=== PATIENT | female | born 1975 | race Caucasian/White ===

== ENCOUNTER 2017-07-05 17:47 | Inpatient (IN) | payer OTHER ==
[~2017-07-05] VITALS: Ht 157.5 cm; Wt 85.8 kg
[2017-07-05] MEDS ORDERED: VIVANCE PO (17:52)
[2017-07-05] MEDS ORDERED: KLONOPIN1 M1 PO (17:52)
--- NOTE | 2017-07-05 18:20 | ED GI/GU/ABDOMINAL COMPLAINT ---
History of Present Illness General Chief Complaint: Abdominal Pain/Flank Pain Stated Complaint: UPPER ABD PAIN Source: patient, family Exam Limitations: no limitations Vital Signs & Intake/Output Vital Signs & Intake/Output Vital Signs Date Time Temp Pulse Resp B/P B/P Pulse O2 O2 Flow FiO2 Mean Ox Delivery Rate 07/06 2031 968.7 93 18 119/57 98 Room Air 07/05 1858 99.0 96 18 151/76 99 Room Air 07/05 1753 98.2 98 20 134/89 97 Allergies Coded Allergies: Penicillins (HIVES 07/05/17) coconut oil (SOB 07/05/17) Triage Note: PER PT UPPER ABD PAIN SINCE FRIDAY, PER PT HAS A CYST ON PANCREAS AND WAS SENT TO [facility] BUT WAS SITTING X 3 HRS AND WAS NOT SEEN LMP 2 WEEKS AGO Triage Nurses Notes Reviewed? yes ? N Is pt currently ? No HPI: 42 yo F presenting with AP, N/V. Abdominal pain for the last 2-3 days, epigastric location, sharp/gnawing quality, radiating "straight through to the back", intermittent waxing and waning intensity, sharp increases, severe when present, unclear precipitating palliating factors. Associated nausea, anorexia, nonbloody nonbilious emesis x1 earlier today. Denies associated fevers, chills, chest pain, shortness breath, palpitations, fast patient, diarrhea, urinary symptoms, headache, neck pain, or focal neurologic symptoms. Evaluated at [place], found to have pancreatitis on labwork, no ED room available, left ED AMA to come to [facility]. patient endorses intermittent alcohol use, 1-2 times a month, most recently 2 glasses of wine yesterday evening. Patient has known pancreatic cystic mass discovered incidentally [address] abdomen and pelvis done for trauma, no prior history of pancreatitis or abdominal surgeries. (Michael LEROY,Clark) Reconcile Medications Clonazepam (Klonopin) 1 MG TABLET 1 TAB PO AT BEDTIME PRN INSOMNIA (Reported) [VIVANCE] 60 MG PO DAILY UNK (Reported) (Vijay LEROY,Mario Coughlin) Past History Travel History Traveled to [place] past 21 day No Medical History Any Pertinent Medical History? see below for history Neurological: NONE EENT: NONE Cardiovascular: NONE Respiratory: NONE Gastrointestinal: NONE Hepatic: NONE Renal: NONE Musculoskeletal: NONE Psychiatric: anxiety Endocrine: NONE Surgical History Surgical History: none Psychosocial History What is your primary language French Tobacco Use: Never used Family History Hx Contributory? No (Clark Rodriguez MD) Review of Systems Review of Systems Constitutional: Reports: no symptoms. EENTM: Reports: no symptoms. Respiratory: Reports: no symptoms. Cardiovascular: Reports: no symptoms. GI: Reports: see HPI. Genitourinary: Reports: no symptoms. Musculoskeletal: Reports: no symptoms. Skin: Reports: no symptoms. Neurological/Psychological: Reports: no symptoms. Hematologic/Endocrine: Reports: no symptoms. Immunologic/Allergic: Reports: no symptoms. All Other Systems: Reviewed and Negative (Clark Rodriguez MD) Physical Exam Physical Exam General Appearance: well developed/nourished, no apparent distress, alert, awake Head: atraumatic Eyes: Bilateral: PERRL, EOMI. Ears, Nose, Throat, Mouth: moist mucous membrane Neck: normal inspection, full range of motion Respiratory: normal breath sounds, no respiratory distress, lungs clear Cardiovascular: regular rate/rhythm, normal peripheral pulses Gastrointestinal: soft, tenderness Comments: Abdomen: Moderate epigasrtic TTP without rebound or guarding Core Measures ACS in differential dx? No Sepsis Present: No Sepsis Focused Exam Completed? No (Clark Rodriguez MD) Progress Differential Diagnosis: AAA, AMI, appendicitis, biliary colic, bowel obstruction , colon cancer, cholecystitis, diverticulitis, ectopic , endometritis, esophageal varices, gastritis, hepatitis, hernia, hemorrhoids, ischemic bowel, inflamm bowel dis, intrauterine , kidney stone, Catarina-Marika tear, ovarian cyst, ovarian torsion, pancreatitis, PID/cervicitis, peptic ulcer, PUD/ GERD, perforated viscous, SBO, threatened AB, UTI/pyelo Plan of Care: Orders Procedure Date/time Status Nothing by Mouth 07/06 B Active US-LIMITED ABDOMEN 07/06 06 Active LIPID PANEL 07/06 06 Active CBC WITHOUT DIFFERENTIAL 07/06 06 Active BASIC ELECTROLYTES PLUS BUN&CR 07/06 06 Active Pathway - chart 07/05 2242 Active House Staff 07/05 2242 Active Patient Data 07/05 2242 Active Code Status 07/05 2242 Active Saline Lock 07/06 2231 Active Misc Message 07/06 2231 Active ED Holding Orders 07/06 2231 Active Vital Signs 07/06 2231 Active Code Status 07/06 2231 Complete Patient Data 07/05 2152 Active Admit to inpatient 07/05 2122 Active Add-on Test (ER Only) 07/05 1904 Active LDH (LACT ACID DEHYDROGENASE) 07/05 182 Complete Intake & Output 07/06 1815 Active URINE 07/05 1809 Complete URINALYSIS 07/05 1809 Complete LIPASE 07/05 1809 Complete LACTIC ACID 07/05 1809 Complete COMPREHENSIVE METABOLIC PANEL 07/05 1809 Complete CBC WITHOUT DIFFERENTIAL 07/05 1809 Complete VTE Mechanical Prophylaxis 07/05 UNK Active Current Medications Sig/Marco Start time Last Medication Dose Stop Time Status Admin Enoxaparin Sodium 40 MG DAILY 07/06 1000 AC (Lovenox) Sodium Chloride 1,000 ML Q4 07/06 0200 UNVr (Normal Saline 0.9%) Clonazepam 1 MG AT BEDTIME PRN 07/05 2300 AC (Klonopin 1MG Tab) 07/12 225 Non-Formulary 0 SEE ADMIN CRITERIA 07/05 230 UNVr Medication (NON FORMULARY) Morphine Sulfate 2 MG Q6P PRN 07/05 2245 AC (MORPHINE SULFATE) Laboratory Tests 07/05/171827: Urine Color YEL, Urine Clarity CLEAR, Urine pH 6.0, Ur Specific [place] 1.025, Urine Protein TRACE H, Urine Ketones NEG, Urine Nitrite NEG, Urine Bilirubin NEG, Urine Urobilinogen 0.2, Ur Leukocyte Esterase NEG, Ur Microscopic SEDIMENT EXAMINED, Urine RBC RARE, Urine WBC 5-10 H, Ur Epithelial Cells MANY H, Urine Mucus FEW, Urine Hemoglobin NEG, Urine Glucose NEG, Urine Test NEGATIVE 07/05/171821: Anion Gap 13, Estimated GFR > 60, BUN/Creatinine Ratio 21.7, Glucose 93, Lactic Acid 1.1, Calcium 9.3, Total Bilirubin 0.8, AST 33, ALT 57 H, Alkaline Phosphatase 125, Lactate Dehydrogenase 476, Total Protein 7.3, Albumin 4.1, Globulin 3.2, Albumin/Globulin Ratio 1.3, Lipase 2325 H, CBC w Diff NO MAN DIFF REQ, RBC 4.57, MCV 84.5, MCH 28.1, MCHC 33.3, RDW 14.0, MPV 8.3, Gran % 70.9, Lymphocytes % 20.3 L, Monocytes % 5.9, Eosinophils % 2.6, Basophils % 0.3, Absolute Granulocytes 8.7 H, Absolute Lymphocytes 2.5, Absolute Monocytes 0.7 H, Absolute Eosinophils 0.3, Absolute Basophils 0 Physician MDM: 42 yo F presenting with AP, N/V. VSS, abdominal exam as above. DDx: Pancreatitis, Biliary Pathology, Colitis. 2L NS and morphine given. Lipase 2325. CBC with mild leukocytosis 12.2. CMP with mild ALT elevation, not especially suggestive of biliary pathology, unable to obtain quadrant ultrasound over night. CT abdomen and pelvis with fat stranding suggestive of pancreatitis , 3.4 cm cystic pancreatic mass without evidence of hemorrhage into mass, some free fluid in pelvis. Despite the free fluid on CT I have and overall low concern for hemorrhage given the patient's hemodynamic stability, normal hemoglobin, non-peritoneal abdominal exam, and lack of apparent active bleeding on CT. Patient meets 1/5 of [facility] Admission Criteria (LDH >350), low concern for severe pancreatitis. Admit to hospitalist for ongoing IV fluid resuscitation, nothing by mouth, further evaluation of pancreatic mass. Initial ED EKG: none (Michael LEROY,Clark) Departure Departure Disposition: STILL A PATIENT Condition: Stable Clinical Impression Primary Impression: Pancreatitis Secondary Impressions: Pancreatic cyst Referrals: Antonietta Salinas APRN (PCP/Family) Departure Forms: Customer Survey General Discharge Information Admission Note Spoke With: Edilberto Villalobos MD Documentation of Exam: Documentation of any treatments & extenuating circumstances including Concerns Regarding Discharge (functional status, medication knowledge or non-compliance, living conditions, etc.) that warrant an admission rather than observation: [ Patient presents with epigastric pain, nausea, difficulty tolerating by mouth, found to have impressive pancreatitis on lab work with pancreatic pseudocyst on CT abdomen and pelvis, patient requires admission for maintenance of NPO, IV fluid resuscitation, IV pain control, further evaluation of pancreatic mass, possible surgical consult, if the patient was discharged has a high likelihood of progressive dehydration due to inability to eat or drink, worsening abdominal pain though be uncontrollable in the outpatient setting, and progressive pancreatic information possibly leading to the necrosis, with severe infection, and possibly .] (Clark Rodriguez MD) Resident Co-Sign Statement Statement: ED Attending supervision documentation- [] I saw and evaluated the patient. I have also reviewed all the pertinent lab results and diagnostic results. I agree with the findings and the plan of care as documented in the Resident's documentation. [x] I have reviewed the ED Record and agree with the Resident's documentation. [] Additions or exceptions (if any) to the Resident's note and plan are summarized below: [] (Vijay LEROY,Mario Coughlin)
[2017-07-05 18:32] LABS: ABSOLUTE BASOPHIL COUNT 0 /CUMM (0.0-0.2); ABSOLUTE EOSINOPHIL COUNT 0.3 /CUMM (0.0-0.7); ABSOLUTE GRANULOCYTE CT 8.7 /CUMM (1.4-6.5); ABSOLUTE LYMPH COUNT 2.5 /CUMM (1.2-3.4); ABSOLUTE MONOCYTE COUNT 0.7 /CUMM (0.10-0.60); BASOPHIL % 0.3 % (0.0-2.0); EOSINOPHIL % 2.6 % (0-5); GRANULOCYTE % 70.9 % (42.2-75.2); HEMATOCRIT 38.6 % (37-47); MEAN CORPUSCULAR HGB 28.1 PG (27.0-31.0); MEAN CORPUSCULAR HGB CONC 33.3 G/DL (33.0-37.0); MEAN CORPUSCULAR VOLUME 84.5 FL (81.0-99.0); MEAN PLATELET VOLUME 8.3 FL (7.4-10.4); PLATELET COUNT 281 /CUMM (130-400); RED BLOOD CELL CT 4.57 /CUMM (4.20-5.40); WHITE BLOOD CELL COUNT 12.2 /CUMM (4.8-10.8)
--- NOTE | 2017-07-05 20:44 | CT SCAN REPORT ---
EXAMINATION: CT ABDOMEN AND PELVIS WITH CONTRAST CLINICAL INFORMATION: Pancreatitis COMPARISON: None TECHNIQUE: Multidetector volumetric imaging was performed of the abdomen and pelvis following IV administration of 95 mL of Optiray 360 intravenous contrast. Sagittal and coronal reformatted images were obtained on the technologist's workstation. DLP: 535 mGy-cm FINDINGS: LUNG BASES: No infiltrates. There is a pleural-based density RIGHT lower lobe measure 9 x 4 mm. Probably noncalcified pleural plaque. LIVER, GALLBLADDER, AND BILIARY TREE: The liver is normal in size, shape, and attenuation. No focal hepatic lesion or biliary ductal dilatation is present. The gallbladder is unremarkable with no evidence of radiopaque gallstones, gallbladder wall thickening, or obvious pericholecystic inflammatory changes. PANCREAS: There is very mild peripancreatic fat stranding around the body of the pancreas, nonspecific however compatible with the clinical diagnosis of pancreatitis. There is a large cystic mass in the body of the pancreas measure about 3.4 x 3.1 cm, this could be evolving pseudocysts versus cystic neoplasm. SPLEEN: Unremarkable. ADRENAL GLANDS: Unremarkable. KIDNEYS AND URETERS: The kidneys are normal in size, shape, and attenuation. No hydronephrosis, hydroureter,. There is a 3 mm nonobstructing stone of the RIGHT kidney.. No perinephric stranding. Tiny hypodensities in the kidneys that are too small to characterize, no suspicious renal mass. Largest in the lower pole RIGHT kidney measure about 6 mm. BLADDER: Unremarkable. GASTROINTESTINAL TRACT: The small and large bowel are unremarkable. The appendix is unremarkable. ABDOMINAL WALL: No significant hernia is appreciated. LYMPH NODES: Normal. VASCULAR: Unremarkable. PELVIC VISCERA: There is a free fluid in the pelvis. The uterus is bulky, there is a LEFT uterine mass could be a fibroid. OSSEOUS STRUCTURES: Unremarkable. IMPRESSION: 1. Mild peripancreatic fat stranding nonspecific however compatible with patient's history of pancreatitis. There is hypodense cystic area within the body of the pancreas 3.4 cm, this could be evolving pseudocyst versus pancreatic neoplastic mass. Consider follow-up nonurgent MRI when patient's condition permits. 2. There is a free fluid in the dependent portion of the pelvis. 3. Pleural-based density RIGHT lower lobe 8 x 4 mm. This could be a noncalcified pleural plaque versus lung nodule. Please see below for follow-up recommendations. 4. Tiny nonobstructing RIGHT kidney stone. Tiny hypodensities in the kidneys too small to characterize. 5. Bulky uterus, there is probably LEFT uterine mass not well visible on CT scan, recommend follow-up nonemergent ultrasound. (Referring physician will be called, alerted of the above findings and recommendations. ) According to the UPDATED 2017 Fleischner Society recommendations, the advised follow-up imaging for solid nodules < 6 mm is: LOW RISK PATIENT: No routine follow-up. HIGH RISK PATIENT: Optional CT at 12 months.
--- NOTE | 2017-07-05 22:52 | History & Physical ---
LinoAnton 07/05/17 2248: General Information and HPI MD Statement: I have seen and personally examined PENNY JUDGE and documented this H&P. The patient is a 42 year old F who presented with a patient stated chief complaint of abdominal pain and bloating for last two days.[]. Source of Information: patient Exam Limitations: no limitations History of Present Illness: 42 YO F non smoker with PMH of ADHD and anxiety presented to ED with chief of abdominal pain and bloating for the last 2 days. Patient reported that she was in her usual state of health when she developed sudden increase in her abdominal pain in the epigastrium, 10/21, pressure-like, radiating to back with no aggravating or relieving factor. Patient also reported having bloating sensation for last 2 days. She reported that mild epigastric pain is always there but it certainly increases on Friday night after she drank 3 drinks. Patient reported that usually she drinks 2-3 times in a month but on Friday night she drank 3 drinks. She went to the walk-in clinic and they referred her to [facility] where she waited for 3 hours and then came to [place] ED. Patient denied any chest pain, palpitation, shortness of breath, nausea, vomiting, lightheadedness, constipation, trauma to abdomen, weight loss, loss of appetite and dysuria. According to patient her weight has been increased but 6 months back she was on ketogenic diet and her weight decreased at that point. Patient had her breakfast this morning. Patient also reported that she is using marijuana for last 6 months for her anxiety usually on every Friday. Patient denied any past medical history of pancreatitis or gallstones. Patient reported that one year back due to abdominal pain after she fell down from car, she went to the [facility] and the CT scan of abdomen was done that showed incidental finding of pancreatic cyst. ED course: Vitals: Temperature 98.2, pulse 98, respiratory rate 20, blood pressure 134/89, oxygen saturation 97% on room air Labs: WBC count 12.2, hemoglobin 12.8, hematocrit 38.6, platelet count 281, sodium 139, potassium 3.7, anion gap 13, BUN 13, creatinine 0.6, BUN/creatinine ratio 21.7, AST 33, ALT 57, alkaline phosphatase 125, lactic acid 1.1, lactate dehydrogenase 476, lipase 2325 Allergies/Medications Allergies: Coded Allergies: Penicillins (HIVES 07/05/17) coconut oil (SOB 07/05/17) Home Med list Clonazepam (Klonopin) 1 MG TABLET 1 TAB PO AT BEDTIME PRN INSOMNIA (Reported) [VIVANCE] 60 MG PO DAILY UNK (Reported) Past History Travel History Traveled to [place] past 21 day No Medical History Neurological: NONE EENT: NONE Cardiovascular: NONE Respiratory: NONE Gastrointestinal: NONE Hepatic: NONE Renal: NONE Musculoskeletal: NONE Psychiatric: anxiety Endocrine: NONE Surgical History Surgical History: none Review of Systems Review of Systems Constitutional: Reports: no symptoms. EENTM: Reports: no symptoms. Cardiovascular: Reports: no symptoms. Respiratory: Reports: no symptoms. GI: Reports: abdominal pain, bloating. Genitourinary: Reports: no symptoms. Musculoskeletal: Reports: no symptoms. Skin: Reports: no symptoms. Neurological/Psychological: Reports: no symptoms. Hematologic/Endocrine: Reports: no symptoms. Exam & Diagnostic Data Last 24 Hrs of Vital Signs/I&O Vital Signs Date Time Temp Pulse Resp B/P B/P Pulse O2 O2 Flow FiO2 Mean Ox Delivery Rate 07/06 2031 968.7 93 18 119/57 98 Room Air 07/05 1858 99.0 96 18 151/76 99 Room Air 07/05 1753 98.2 98 20 134/89 97 Physical Exam General Appearance Alert, Oriented X3, Cooperative, No Acute Distress Skin No Rashes Skin Temp/Moisture Exam: Warm/Dry Sepsis Skin Exam (color): Normal for Ethnicity HEENT Atraumatic, PERRLA, EOMI Neck Supple Cardiovascular Normal S1, Normal S2 Lungs Clear to Auscultation, Normal Air Movement Abdomen Normal Bowel Sounds, Soft Neurological Normal Speech, Strength at 5/5 X4 Ext, Normal Tone, Sensation Intact Extremities No Edema Last 24 Hrs of Labs/Chris: Laboratory Tests 07/05/17 1828: Urine Color YEL, Urine Clarity CLEAR, Urine pH 6.0, Ur Specific [place] 1.025, Urine Protein TRACE H, Urine Ketones NEG, Urine Nitrite NEG, Urine Bilirubin NEG, Urine Urobilinogen 0.2, Ur Leukocyte Esterase NEG, Ur Microscopic SEDIMENT EXAMINED, Urine RBC RARE, Urine WBC 5-10 H, Ur Epithelial Cells MANY H, Urine Mucus FEW, Urine Hemoglobin NEG, Urine Glucose NEG, Urine Test NEGATIVE 07/05/17 1822: Anion Gap 13, Estimated GFR > 60, BUN/Creatinine Ratio 21.7, Glucose 93, Lactic Acid 1.1, Calcium 9.3, Total Bilirubin 0.8, AST 33, ALT 57 H, Alkaline Phosphatase 125, Lactate Dehydrogenase 476, Total Protein 7.3, Albumin 4.1, Globulin 3.2, Albumin/Globulin Ratio 1.3, Lipase 2325 H, CBC w Diff NO MAN DIFF REQ, RBC 4.57, MCV 84.5, MCH 28.1, MCHC 33.3, RDW 14.0, MPV 8.3, Gran % 70.9, Lymphocytes % 20.3 L, Monocytes % 5.9, Eosinophils % 2.6, Basophils % 0.3, Absolute Granulocytes 8.7 H, Absolute Lymphocytes 2.5, Absolute Monocytes 0.7 H, Absolute Eosinophils 0.3, Absolute Basophils 0 Assessment/Plan Assessment: 42 YO F non smoker with PMH of ADHD and anxiety presented to ED with chief of abdominal pain and bloating for the last 2 days. We will admit the patient on general medicine floor to treat for pancreatitis. Pancreatitis with pancreatic cyst: -Considering patient's presentation, level of lipase and CAT scan findings patient has pancreatitis. Could be precipitated with alcohol drinking with pancreatic cyst or could be due to blockage of pancreatic ducts with mucinous fluid from mucinous cystic pancreatic tumor. -Follow-up with abdominal MRI with pancreatic mass protocol. Patient may need endoscopic ultrasound. -If abdominal MRI would be done then we will do the right upper quadrant ultrasound. -Nothing by mouth -Aggressive IV hydration with normal saline at the rate of 50 mL per hour -Adequate pain management with IV morphine -IV Protonix -CRP for three day as prognostic factor. -Check nagnesium and phosphorus. -GI consult History of ADHD: -We will continue her home medication. History of anxiety: -Continue clonazepam DVT prophylaxis: Mechanical and subcutaneous Lovenox CODE STATUS: Full code As Ranked By This Provider Problem List: 1. Pancreatic cyst 2. Pancreatitis Core Measures/Misc (12/29) Acute Coronary Syndrome ACS Diagnosis: No Congestive Heart Failure Congestive Heart Failure Diagnosis No Cerebrovascular Accident CVA/TIA Diagnosis: No VTE (View Protocol) VTE Risk Factors Age>40 No Mechanical VTE Prophylaxis d/t N/A MechProphylax Ordered No VTE Pharm Prophylaxis d/t NA PharmProphylax ordered Sepsis (View protocol) Sepsis Present: No Rosetta Kuo 07/06/17 0058: Resident Review Statement Resident Statement: examined this patient, discussed with biology internship, agreed with biology internship Other Findings: Patient is 42-year-old female with past medical history significant for ADHD on amphetamines and anxiety/insomnia came with chief complaint of epigastric pain since Friday night. Patient endorses that she was fine until Friday night when she started having epigastric pain radiating to her back, 7/10 in intensity, constant without any alleviating or exacerbating factors. She also mentioned that she had 3 alcoholic drinks on Friday night along with marijuana which she takes for her anxiety. She denied any nausea or vomiting but doesn't feel like to eat for last couple of days. She denied any fever, chills, palpitations, chest pain, constipation or any urinary complaints. She had diarrhea for one day when abdominal pain was started on Friday but resolved on its own. She denied any past history of pancreatitis but she reported that in January 2017 she had a fall and had CT abdomen done that showed incidental pancreatic cyst which she is following up with GI once and supposed to have MRI done soon. Patient went to walk-in clinic first and from there she was advised to go to [facility] but due to long wait she decided to come to [place]. And vital signs were temperature 98.2, pulse 98, respiratory rate 20, blood pressure 134/89 and she was saturating 97% on room air. Labs were significant for WBC count 12.2, hemoglobin 12.8, hematocrit 38.6, platelet count 281, sodium 139, potassium 3.7, BUN 13, creatinine 0.6, ALT 57, lipase 2325 CT abdomen and pelvis showed mild peripancreatic fat stranding compatible with pancreatitis, there is hypodense cystic area within the body of pancreas 3.4 cm needs further nonemergent MRI On examination Patient is alert and oriented 3 Head atraumatic Neck supple no JVD Chest clear to auscultate Heart S1, S2 normal with no added sounds Abdomen soft, slight tenderness in epigastric area no organomegaly, Fountain's negative Extremities showed no edema, cyanosis or clubbing No neurological deficit noted on examination Assessment and plan 42-year-old female with history of marijuana use, not using alcohol on a regular basis but had 3 drinks on Friday night, history of pancreatic cyst incidentally found in January 2017 came with chief complaint of abdominal pain with lab findings as well as imaging evidence of mild pancreatitis. We will admit patient under medical floor and will address following problems Problem list 1. Acute pancreatitis 2. Cystic pancreatic mass could be pseudocyst, malignancy needs to be ruled out 3. History of ADHD on amphetamines 4. History of anxiety/insomnia Plan 1. Admit on general medical floor 2. We will keep her nothing by mouth and give her aggressive IV hydration. She already received 2 L in ED and we will continue normal saline at rate 250 3. We will advance diet when she will be able to tolerate 4. Antiemetics as needed 5. We will give her IV morphine as needed for pain control 6. GI evaluation in a.m. for pancreatic cyst. 7. We will request records from [facility] in a.m. 8. For pancreatic cyst we will do MRI in a.m. but if not then we will request Limited abdominal ultrasound to rule out gallstones 9. We will monitor her WBC count which is elevated most likely due to pancreatitis. Her pancreatitis most likely due to alcoholic pancreatitis/ gallstone pancreatitis. She is not on any medications which can cause pancreatitis according to her history. We will monitor her WBC count and basic electrolyte panel with creatinine. Patient is full code Nothing by mouth Pharmacological DVT prophylaxis Edilberto Villalobos 07/06/17 0150: Attending MD Review Statement Attending Statement Attending MD Statement: examined this patient, discuss w/resident/PA/[employer], agreed w/resident/PA/[employer], reviewed EMR data (avail), reviewed images, amended to note Attending Assessment/Plan: CC: Abdominal pain PMH: ADHD Patient came to ER for further evaluation of abdominal pain. Patient started to notice abdominal pain on Friday morning, epigastric region, sometimes radiating to right upper quadrant and back, 7/10 in intensity, on and off, pressure-like, no aggravating or relieving factors, not associated with nausea, vomiting, chest pain, heartburn. Appetite was normal, did not notice any night sweats or weight loss over last few months. She had transient diarrhea on Friday which is resolved. She went to urgent clinic today from where she was suggested to go to ER. She was waiting in [facility] ER for a few hours and was expecting a few more hours of wait so she came here. Some blood work was obtained there but did not have results. She endorses having 3 alcoholic drinks Cristhian evening, and she drinks alcohol very rarely. She had right upper quadrant pain a few years back when she was investigated for gallbladder stones and it was negative. 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 and incidentally found to have a cyst in her pancreas, at that time she was suggested to follow up outpatient with satellite tv technician installer. She visited satellite tv technician installer in the month of April but trying to find another satellite tv technician installer and expecting an MRI of her abdomen which is not done yet. She never had history of pancreatitis in the past. 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 Vitals: Afebrile, pulse 90s, RR 20, blood pressure 134/89, saturating well on room air. On exam: A O 3, cooperative, no acute distress, neck supple, JVD normal, no lymphadenopathy, mucosa moist, no focal neurological deficit, no dependent edema , no obvious skin rashes or inflammation CVS: S1-S2, RRR. RS: Clear to auscultate bilaterally. Abdomen: Soft, mild epigastric tenderness, Fountain's sign negative, ND, bowel sounds present. CT abdomen pelvis with IV contrast: 1. Mild peripancreatic fat stranding nonspecific however compatible with patient's history of pancreatitis. There is hypodense cystic area within the body of the pancreas 3.4 cm, this could be evolving pseudocyst versus pancreatic neoplastic mass. Consider follow-up nonurgent MRI when patient's condition permits. 2. There is a free fluid in the dependent portion of the pelvis. 3. Pleural-based density RIGHT lower lobe 8 x 4 mm. This could be a noncalcified pleural plaque versus lung nodule. Please see below for follow-up recommendations. 4. Tiny nonobstructing RIGHT kidney stone. Tiny hypodensities in the kidneys too small to characterize. 5. Bulky uterus, there is probably LEFT uterine mass not well visible on CT scan, recommend follow-up nonemergent ultrasound. Assessment and plan 42-year-old female with no significant past medical history presented in ER for 2 day duration of epigastric abdominal pain, pressure-like, 7/10, radiating to right upper quadrant and back, associated one day of diarrhea but currently has no diarrhea, vomiting, chest pain, heartburn. She has epigastric tenderness on palpation and was found to have elevated lipase of 2325. She has mild leukocytosis with 12.2 and mild elevation in her ALT: 57, albumin, bilirubin normal. Patient appears to have pancreatitis but given her history of cyst in her pancreas CT abdomen and pelvis with IV contrast was obtained which confirms the finding of hypodense cystic area of 3.4 cm diameter. This is unlikely to be pseudocyst as symptoms are acute and patient never had pancreatitis in the past. In fact she had incidental finding on CT scan done in October 2016. We will obtain those reports to compare, patient may further require evaluation with MRI for further evaluation. Compression effect by the cyst on pancreatic duct may be causing pancreatitis which is unclear. Patient will require right upper quadrant ultrasound to rule out any gallstones as a cause of pancreatitis. We'll also obtain lipid profile. + Pancreatitis - Admit to general medicine - Continue aggressive hydration with normal saline and 150 -200 mL per hour - Check right upper quadrant ultrasound , lipid profile - check CRP for 3 days as prognostic indicator - Check magnesium and phosphorus, replace if low - Adequate pain control - Check LFT in a.m. - Nothing by mouth for now and advance diet tomorrow as tolerated - Gastroenterology consult for pancreatic cyst - Obtain records from [facility] about previous CT scan - DVT prophylaxis
[2017-07-06 00:07] VITALS: BP 114/78
--- NOTE | 2017-07-06 01:52 | Admission Certification ---
Admission Certification Certification Statement - As attending physician, I certify that at the time of - admission, based on clinical presentation, severity of - symptoms, need for further diagnostic testing and - therapeutic interventions, and risk of adverse outcomes - without in-hospital treatment, in my clinical assessment, - this patient requires an acute hospital stay for a minimum - of two nights or longer. I have also considered psychsocial - factors such as support system, advanced age, financial - issues, cognitive issues, and failed out-patient treatments, - past re-admission history, safety of patient, and lack of - compliance as applicable. Specific rationale supporting this admission is: Acute pancreatitis
[2017-07-06 06:20] VITALS: BP 122/66
--- NOTE | 2017-07-06 08:03 | PN- Housestaff ---
Wendy Abraham 07/06/17 0803: Subjective Follow-up For: Pancreatitis Pancreatic cyst Subjective: No complaints or acute event overnight Review of Systems Constitutional: Reports: see HPI. Objective Last 24 Hrs of Vital Signs/I&O Vital Signs Date Time Temp Pulse Resp B/P B/P Pulse O2 O2 Flow FiO2 Mean Ox Delivery Rate 07/06 0620 98.3 90 18 122/66 98 Room Air 07/06 0007 98.6 87 20 114/78 98 Room Air 07/05 203 968.7 93 18 119/57 98 Room Air 07/05 1858 99.0 96 18 151/76 99 Room Air 07/05 1753 98.2 98 20 134/89 97 Intake & Output 07/06 1600 07/06 0800 07/06 0000 Intake Total 1750 2000 Output Total Balance 1750 2000 Intake, IV 1750 2000 Intake, Oral 0 Patient 203 lb 180 lb Weight Weight Bed scale Reported by Patient Measurement Method Physical Exam General Appearance: Alert, Oriented X3, Cooperative, No Acute Distress Cardiovascular: Regular Rate, Normal S1, Normal S2 Lungs: Clear to Auscultation, Normal Air Movement Abdomen: Normal Bowel Sounds, Soft, No Tenderness Current Medications: Current Medications Sig/Marco Start time Last Medication Dose Route Stop Time Status Admin Clonazepam 1 MG AT BEDTIME PRN 07/05 2300 AC PO 07/12 2258 Enoxaparin Sodium 40 MG DAILY 07/06 1000 AC SC Methylphenidate HCl 10 MG TID 07/05 2335 AC PO Morphine Sulfate 2 MG ONCE ONE 07/06 0145 DC 07/06 IV 07/06 0146 0156 Morphine Sulfate 2 MG Q6P PRN 07/05 2245 AC 07/06 IV 0627 Morphine Sulfate 0 .STK-MED ONE 07/05 192 DC .ROUTE Morphine Sulfate 8 MG ONCE ONE 07/05 191 DC 07/05 IV 07/05 Non-Formulary 0 SEE ADMIN CRITERIA 07/05 230 DC Medication ANY Sodium Chloride 1,000 ML Q5 07/06 0800 AC IV Sodium Chloride 1,000 ML Q4 07/06 0200 DC 07/06 IV 0415 Sodium Chloride 1,000 ML Q6H 07/05 2245 DC IV Sodium Chloride 1,000 ML BOLUS ONE 07/05 1900 DC 07/05 IV 07/05 Sodium Chloride 1,000 ML BOLUS ONE 07/05 1900 DC 07/05 IV 07/05 Last 24 Hrs of Lab/Chris Results Last 24 Hrs of Labs/Mics: Laboratory Tests 07/06/17 0731: Sodium Pending, Potassium Pending, Chloride Pending, Carbon Dioxide Pending, Anion Gap Pending, BUN Pending, Creatinine Pending, BUN/Creatinine Ratio Pending , Triglycerides Pending, Cholesterol Pending, LDL Cholesterol, Calc Pending, HDL Cholesterol Pending, Cholesterol/HDL Ratio Pending, CBC w Diff Pending, WBC Pending, RBC Pending, Hgb Pending, Hct Pending, MCV Pending, MCH Pending, MCHC Pending, RDW Pending, Plt Count Pending, MPV Pending 07/05/171827: Urine Color YEL, Urine Clarity CLEAR, Urine pH 6.0, Ur Specific [place] 1.025, Urine Protein TRACE H, Urine Ketones NEG, Urine Nitrite NEG, Urine Bilirubin NEG, Urine Urobilinogen 0.2, Ur Leukocyte Esterase NEG, Ur Microscopic SEDIMENT EXAMINED, Urine RBC RARE, Urine WBC 5-10 H, Ur Epithelial Cells MANY H, Urine Mucus FEW, Urine Hemoglobin NEG, Urine Glucose NEG, Urine Test NEGATIVE 07/05/171821: Anion Gap 13, Estimated GFR > 60, BUN/Creatinine Ratio 21.7, Glucose 93, Lactic Acid 1.1, Calcium 9.3, Phosphorus 4.0, Magnesium 2.0, Total Bilirubin 0.8, AST 33, ALT 57 H, Alkaline Phosphatase 125, Lactate Dehydrogenase 476, C-Reactive Prot, Quant 6.3 H, Total Protein 7.3, Albumin 4.1, Globulin 3.2, Albumin/ Globulin Ratio 1.3, Lipase 2325 H, CBC w Diff NO MAN DIFF REQ, RBC 4.57, MCV 84.5, MCH 28.1, MCHC 33.3, RDW 14.0, MPV 8.3, Gran % 70.9, Lymphocytes % 20.3 L , Monocytes % 5.9, Eosinophils % 2.6, Basophils % 0.3, Absolute Granulocytes 8.7 H, Absolute Lymphocytes 2.5, Absolute Monocytes 0.7 H, Absolute Eosinophils 0.3, Absolute Basophils 0 Assessment/Plan Assessment: Ms. Hilliard is a 42-year-old female with past medical history significant for ADHD on amphetamines and anxiety/insomnia came with chief complaint of epigastric pain since Friday Problem list: Pancreatitis most likely 2/2 cholelithiasis Pancreatic cyst Plan: US abd showed no gallstones seen, complex partially solid partially cystic lesion in the body of the pancreas and a right renal stone continue IVF continue Morphine GI recommendations appreciated Obtain records from [place] Will CRP for 72 hours for prognosis Advance diet as tolerated DVT prophylaxis: Mechanical and subcutaneous Lovenox CODE STATUS: Full code Problem List: 1. Pancreatitis 2. Pancreatic cyst Pain Ratin Pain Location: NA Pain Goal: Remain pain free Pain Plan: NA Tomorrow's Labs & Rationales: BEP, CBC, CRP Jermaine LEROY,[facility] 07/06/17 1221: Attending MD Review Statement Attending Statement Attending MD Statement: examined this patient, discuss w/resident/PA/COMMUNITY ENGAGEMENT REPRESENTATIVE, agreed w/resident/PA/COMMUNITY ENGAGEMENT REPRESENTATIVE, reviewed EMR data (avail), discussed with nursing, reviewed images, amended to note Attending Assessment/Plan: Patient seen and examined, continue to complain of some abdominal pains especially in the epigastric region and right upper quadrant. Nausea has improved. Vital Signs Date Time Temp Pulse Resp B/P B/P Pulse O2 O2 Flow FiO2 Mean Ox Delivery Rate 07/06 0620 98.3 90 18 122/66 98 Room Air 07/06 0007 98.6 87 20 114/78 98 Room Air 07/05 2032 968.7 93 18 119/57 98 Room Air 07/05 1858 99.0 96 18 151/76 99 Room Air 07/05 1753 98.2 98 20 134/89 97 on exam; aox3, nad. cv; s1,s2, rrr resp; clear abd; soft, tender in epigastrium, bs+ ext; no edema. Laboratory Tests 07/06 07/06 0936 0731 Chemistry Sodium (137 - 145 mmol/L) 140 Potassium (3.5 - 5.1 mmol/L) 3.6 Chloride (98 - 107 mmol/L) 107 Carbon Dioxide (22 - 30 mmol/L) 25 Anion Gap (5 - 16) 7 BUN (7 - 17 mg/dL) 8 Creatinine (0.5 - 1.0 mg/dL) 0.6 Estimated GFR (>60 ml/min) > 60 BUN/Creatinine Ratio (7 - 25 %) 13.3 Total Bilirubin (0.2 - 1.3 mg/dL) 0.8 Direct Bilirubin (< 0.4 mg/dL) 0.4 AST (14 - 36 U/L) 24 ALT (9 - 52 U/L) 46 Alkaline Phosphatase (<127 U/L) 86 Total Protein (6.3 - 8.2 g/dL) 5.6 L Albumin (3.5 - 5.0 g/dL) 2.9 L Triglycerides (<150 mg/dL) 148 Cholesterol (<200 MG/DL) 133 LDL Cholesterol, Calc (65 - 129 mg/dL) 85 HDL Cholesterol (40 - 60 mg/dL) 19 L Cholesterol/HDL Ratio (0.00 - 4.23 %) 7 H Hematology CBC w Diff NO MAN DIFF REQ WBC (4.8 - 10.8 /CUMM) 7.8 RBC (4.20 - 5.40 /CUMM) 3.80 L Hgb (12.0 - 16.0 G/DL) 10.8 L Hct (37 - 47 %) 32.2 L MCV (81.0 - 99.0 FL) 84.7 MCH (27.0 - 31.0 PG) 28.4 MCHC (33.0 - 37.0 G/DL) 33.6 RDW (11.5 - 14.5 %) 13.7 Plt Count (130 - 400 /CUMM) 195 MPV (7.4 - 10.4 FL) 8.9 Gran % (42.2 - 75.2 %) 69.1 Lymphocytes % (20.5 - 51.1 %) 20.7 Monocytes % (1.7 - 9.3 %) 6.2 Eosinophils % (0 - 5 %) 3.8 Basophils % (0.0 - 2.0 %) 0.2 Absolute Granulocytes (1.4 - 6.5 /CUMM) 5.4 Absolute Lymphocytes (1.2 - 3.4 /CUMM) 1.6 Absolute Monocytes (0.10 - 0.60 /CUMM) 0.5 Absolute Eosinophils (0.0 - 0.7 /CUMM) 0.3 Absolute Basophils (0.0 - 0.2 /CUMM) 0 07/05 07/05 1828 1822 Chemistry Sodium (137 - 145 mmol/L) 139 Potassium (3.5 - 5.1 mmol/L) 3.7 Chloride (98 - 107 mmol/L) 100 Carbon Dioxide (22 - 30 mmol/L) 26 Anion Gap (5 - 16) 13 BUN (7 - 17 mg/dL) 13 Creatinine (0.5 - 1.0 mg/dL) 0.6 Estimated GFR (>60 ml/min) > 60 BUN/Creatinine Ratio (7 - 25 %) 21.7 Glucose (65 - 99 mg/dL) 93 Lactic Acid (0.7 - 2.1 mmol/L) 1.1 Calcium (8.4 - 10.2 mg/dL) 9.3 Phosphorus (2.5 - 4.5 mg/dL) 4.0 Magnesium (1.6 - 2.3 mg/dL) 2.0 Total Bilirubin (0.2 - 1.3 mg/dL) 0.8 AST (14 - 36 U/L) 33 ALT (9 - 52 U/L) 57 H Alkaline Phosphatase (<127 U/L) 125 Lactate Dehydrogenase (313 - 618 U/L) 476 C-Reactive Prot, Quant (<1.0 mg/dL) 6.3 H Total Protein (6.3 - 8.2 g/dL) 7.3 Albumin (3.5 - 5.0 g/dL) 4.1 Globulin (1.9 - 4.2 gm/dL) 3.2 Albumin/Globulin Ratio (1.1 - 2.2 %) 1.3 Lipase (23 - 300 U/L) 2325 H Hematology CBC w Diff NO MAN DIFF REQ WBC (4.8 - 10.8 /CUMM) 12.2 H RBC (4.20 - 5.40 /CUMM) 4.57 Hgb (12.0 - 16.0 G/DL) 12.8 Hct (37 - 47 %) 38.6 MCV (81.0 - 99.0 FL) 84.5 MCH (27.0 - 31.0 PG) 28.1 MCHC (33.0 - 37.0 G/DL) 33.3 RDW (11.5 - 14.5 %) 14.0 Plt Count (130 - 400 /CUMM) 281 MPV (7.4 - 10.4 FL) 8.3 Gran % (42.2 - 75.2 %) 70.9 Lymphocytes % (20.5 - 51.1 %) 20.3 L Monocytes % (1.7 - 9.3 %) 5.9 Eosinophils % (0 - 5 %) 2.6 Basophils % (0.0 - 2.0 %) 0.3 Absolute Granulocytes (1.4 - 6.5 /CUMM) 8.7 H Absolute Lymphocytes (1.2 - 3.4 /CUMM) 2.5 Absolute Monocytes (0.10 - 0.60 /CUMM) 0.7 H Absolute Eosinophils (0.0 - 0.7 /CUMM) 0.3 Absolute Basophils (0.0 - 0.2 /CUMM) 0 Urines Urine Color (YEL,AMB,STR) YEL Urine Clarity (CLEAR) CLEAR Urine pH (5.0 - 8.0) 6.0 Ur Specific [place] (1.001 - 1.035) 1.025 Urine Protein (NEG,<30 MG/DL) TRACE H Urine Ketones (NEG) NEG Urine Nitrite (NEG) NEG Urine Bilirubin (NEG) NEG Urine Urobilinogen (0.1 - 1.0 EU/dl) 0.2 Ur Leukocyte Esterase (NEG) NEG Ur Microscopic SEDIMENT EXAMINED Urine RBC (0 - 5 /HPF) RARE Urine WBC (0 - 2 /HPF) 5-10 H Ur Epithelial Cells (NONE,FEW) MANY H Urine Mucus (FEW,NONE) FEW Urine Hemoglobin (NEG) NEG Urine Glucose (N MG/DL) NEG Urine Test NEGATIVE A/P: 42-year-old female with past medical history significant for ADHD and anxiety who is admitted with abdominal pain, acute bronchitis and found to have pancreatic mass likely pancreatic cyst. We'll start the patient on clear liquid today. Continue IV fluids. Will advance diet slowly as she tolerates. Continue symptomatic management. GI consult will be obtained. Need to obtain records from [facility] about her previous CAT scans. DVT px: Lovenox.
[2017-07-06 08:33] LABS: ABSOLUTE BASOPHIL COUNT 0 /CUMM (0.0-0.2); ABSOLUTE EOSINOPHIL COUNT 0.3 /CUMM (0.0-0.7); ABSOLUTE GRANULOCYTE CT 5.4 /CUMM (1.4-6.5); ABSOLUTE LYMPH COUNT 1.6 /CUMM (1.2-3.4); ABSOLUTE MONOCYTE COUNT 0.5 /CUMM (0.10-0.60); BASOPHIL % 0.2 % (0.0-2.0)
[2017-07-06 08:58] LABS: EOSINOPHIL % 3.8 % (0-5); GRANULOCYTE % 69.1 % (42.2-75.2); MEAN CORPUSCULAR HGB 28.4 PG (27.0-31.0); MEAN CORPUSCULAR HGB CONC 33.6 G/DL (33.0-37.0); MEAN CORPUSCULAR VOLUME 84.7 FL (81.0-99.0); MEAN PLATELET VOLUME 8.9 FL (7.4-10.4); PLATELET COUNT 195 /CUMM (130-400); RBC DISTRIBUTION WIDTH 13.7 % (11.5-14.5); WHITE BLOOD CELL COUNT 7.8 /CUMM (4.8-10.8)
[2017-07-06 09:00] LABS: HEMATOCRIT 32.2 % (37-47)
--- NOTE | 2017-07-06 09:36 | ULTRASOUND REPORT ---
EXAMINATION: US ABDOMEN LIMITED CLINICAL INFORMATION: Pancreatitis. Evaluate for gallstones.. COMPARISON: CT obtained yesterday of the abdomen and pelvis TECHNIQUE: Real-time imaging of the right upper quadrant abdominal viscera. FINDINGS: PANCREAS: Not well visualized due to bowel gas. There is a 3.2 x 3.3 x 3.3 cm complex partially solid partially cystic lesion the body of the pancreas. LIVER: Normal. The liver demonstrates normal size, contour and echogenicity. No focal lesion or intrahepatic biliary duct dilatation. GALLBLADDER: Normal. The gallbladder is physiologically distended without evidence of stones, sludge, polyps, wall thickening or pericholecystic fluid. COMMON BILE DUCT: Normal in caliber measuring 0.4 cm in diameter. RIGHT KIDNEY: There is a 6 mm stone in the midpole. No hydronephrosis. No focal parenchymal lesions. The kidney measures 11.9 cm in maximum dimension. FREE FLUID: None. IMPRESSION: No gallstones seen. 3.2 x 3.4 x 3.3 cm complex partially solid partially cystic lesion in the body of the pancreas. Right renal stone.
--- NOTE | 2017-07-06 13:41 | Cons- Gastroenterology ---
General Information and HPI Consulting Request Date of Consult: 07/06/17 Requested By: Edilberto Villalobos MD Reason for Consult: I was called this morning by the hospitalist service to assess pancreatitis and abnormal CT. (The consult was done in the presence of the patient's female cousin, who was visiting, as per the patient). 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 Julianne Omre for CLINICAL LAB SPECIALIST, who presented to the [facility] 07/05/17, at 5:47 PM, complaining of pressure-like epigastric pain & bloating, since 07/03/17, "7 out of 10" and constant in nature, radiating to the mid-back. She has a known history of a pancreatic cyst, incidentally found in 10/2016, when she fell of the roof of a stationary car, while camping, and had a CT abdomen at [facility]. She was not compliant with a suggested EUS then. She does not have a GI MD. She had never had documented pancreatitis. She never had an EGD or colonoscopy. On p.m. 07/03/17, the patient noted epigastric pain, which subsided, only to recur Friday p.m., after she had 3 drinks EtOH. Her symptoms persisted and she went to a walk-in clinic 07/05/17 & was sent to [facility], but waited 3 hours and left without being seen. Upon arrival to the [facility], BP 134/89, P 98, R 20, T 98.2 (Tm 99), O2 sat RA 97%. She was given IV NS & MS in the ER. She denied any nausea, vomiting, or diarrhea. The patient is an ex-5 pk yr cigarette smoker, D/C 2007. There is history of mild to moderate EtOH, approximately 3 times a month. She did have 3 drinks of EtOH Cristhian evening , prior to the onset of symptoms. Her GB is intact. She denied using any NSAIDs, Sulfa, thiazides, or BCP. Her symptoms were better when leaning forward. She denied any chest pain, SOB, palpitation, jaundice, dark urine, light stool, pruritus, abdominal trauma, weight loss, change in appetite, symptoms of UTI, or URI. She intentionally lost weight 15 lbs 6 months [employer] on a ketogenic diet, but had since regained it back. She has used marijuana for the past 6 months for her anxiety, usually every Cristhian. She denied any history of gallstones. 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 She was on outpt Klonopin & Vyvanse, which are not known to cause pancreatitis. She denied any new medications regarding the pancreatitis. She denied any FFI, GERD, odynophagia, dysphagia, early satiety, hematemesis, melena, diarrhea, constipation, obstipation, tenesmus, or BRBPR. There is a +FHx GBD (patient's father). There is a +FHx colon Ca (MU- 50's, who also had Crohn's disease. There is a +FHx colon polyps (F). There is no FHx pancreatitis, additional GI disease or GI Ca, or inherited liver disease.The patient was admitted to General Medicine. 07/05/17: 6:22 p.m.- Admission labs- WBC 12.2 (71% gran/9 gran Ab), H/H 12.8/ 38.6, MCV 84.5, RDW 14.0, PLT 281, glucose 93, BUN/Cr 13/0.6, GFR > 60, Na 139, K 3.7, HCO3 26, AG 13, lactate 1.1, Ca 9.3, Mg 2.0, PO4 4.0, lipase 2325, albumin 4.1, globulin 3.2, TBil 0.8, alk phos 125, AST 33, ALT 57, LDH 476, * elevated CRP 6.3. 07/05/17: U/A- clear, yellow, 1.025, 6.0, rare RBC, 5-10 WBC, many epith, tr protein, micro- otherwise neg; neg nitrite, neg esterase. 07/05/17: U preg- neg. 07/06/17: WBC 7.8, H/H 10.8/32.2, MCV 84.7, RDW 13.7, PLT 195, BUN/Cr 8/0.6, GFR > 60, Na 140, K 3.6, HCO3 25, AG 7, TChol 133, *TG 148 07/05/17: CT ABD & PELVIS W IV CONTRAST- IMPRESSION: 1. Mild peripancreatic fat stranding nonspecific however compatible with patient's history of pancreatitis. There is hypodense cystic area within the body of the pancreas 3.4 cm, this could be evolving pseudocyst versus pancreatic neoplastic mass. Consider follow-up nonurgent MRI when patient's condition permits. 2. There is a free fluid in the dependent portion of the pelvis. 3. Pleural-based density RIGHT lower lobe 8 x 4 mm. This could be a noncalcified pleural plaque versus lung nodule. Please see below for follow-up recommendations. 4. Tiny nonobstructing RIGHT kidney stone. Tiny hypodensities in the kidneys too small to characterize. 5. Bulky uterus, there is probably LEFT uterine mass not well visible on CT scan, recommend follow-up nonemergent ultrasound. (Referring physician will be called, alerted of the above findings and recommendations. ) According to the UPDATED 2017 Fleischner Society recommendations, the advised follow-up imaging for solid nodules < 6 mm is: LOW RISK PATIENT: No routine follow-up. HIGH RISK PATIENT: Optional CT at 12 months. DICTATED BY: Easton LEROY,Ness DATE/TIME DICTATED:07/05/17202007/06/17: US ABDOMEN LIMITED (RUQ)- IMPRESSION: Normal liver & GB, without dilated IHD/EHD. CBD 4 mm. No gallstones seen. 3.2 x 3.4 x 3.3 cm complex partially solid partially cystic lesion in the body of the pancreas. 6 mm right renal stone, without hydronephrosis. DICTATED BY: Jesus LEROY,Alexa Johnson DATE/TIME DICTATED:07/06/1792807/06/17: EKG- NSR @ 94, nl axis, nl intervals, without acute ischemic changes. Allergies/Medications Allergies: Coded Allergies: Penicillins (HIVES 07/05/17) coconut oil (SOB 07/05/17) Home Med List: Clonazepam (Klonopin) 1 MG TABLET 1 TAB PO AT BEDTIME PRN INSOMNIA (Reported) [VIVANCE] 60 MG PO DAILY UNK (Reported) Past History Travel History Traveled to [place] past 21 day No Medical History Blood Transfusion Hx: No Neurological: NONE EENT: NONE Cardiovascular: NONE Respiratory: NONE Gastrointestinal: pancreatic cyst Hepatic: NONE Renal: NONE Musculoskeletal: NONE Psychiatric: anxiety, ADHD Endocrine: NONE Blood Disorders: NONE Cancer(s): NONE CLINICAL LAB SPECIALIST/Reproductive: NONE Surgical History Surgical History: cervical circlosure x 2, post delivery Family History Relations & Conditions If Any: MOTHER (HTN). Age 67. FATHER (HTN/post CCKY/colon polyps). Age 67. SISTER (anxiety). Age 31. MU (Crohn's disease). , Age 54; Cause: Colon cancer. Relation not specified for: Crohn's disease gallbladder disease in father malignant neoplasm of colon in relative diagnosed when older than 50 years of age Psychosocial History Where Do You Live? Home Who Do You Live With? spouse, child Services at Home: None Primary Language: Japanese Smoking Status: Former Smoker ETOH Use: occasional use (mild to mod) Illicit Drug Use: marijuana Living Will? no Power of Department Sales Manager/HCP? no Other Social History: . 2 sons & 1 dtr- [employer]. Ex-5 pk yr cigarette smoker. Mild to mod EtOH, 2- 3x/month. + Marijuana for anxiety, 1x/week. No other illicit drugs. No IVDA. 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 Functional Ability ADLs Independent: dressing, eating, toileting, bathing. Ambulation: independent IADLs Independent: shopping, housework, finances, food prep, telephone, transportation , medication admin. 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 Constitutional: Reports: no symptoms. EENTM: Reports: no symptoms. Cardiovascular: Reports: no symptoms. Respiratory: Reports: no symptoms. GI: Reports: abdominal pain, bloating. Genitourinary: Reports: no symptoms. Musculoskeletal: Reports: no symptoms. Skin: Reports: no symptoms. Neurological/Psychological: Reports: anxiety. Hematologic/Endocrine: Reports: no symptoms. Review of Systems All Other Systems: Reviewed and Negative Exam & Diagnostic Data Vital Signs and I&O Vital Signs Date Time Temp Pulse Resp B/P B/P Pulse O2 O2 Flow FiO2 Mean Ox Delivery Rate 07/06 0620 98.3 90 18 122/66 98 Room Air 07/06 0007 98.6 87 20 114/78 98 Room Air 07/06 2031 968.7 93 18 119/57 98 Room Air 07/05 1858 99.0 96 18 151/76 99 Room Air 07/05 1753 98.2 98 20 134/89 97 Intake & Output 07/06 1600 07/06 0400 07/05 0400 07/04 040 Intake Total 1750 1999 Output Total Balance 1750 1999 Intake, IV 1750 1999 Intake, Oral 0 Patient 203 lb 180 lb Weight Weight Bed scale Reported by Patient Measurement Method Physical Exam: Well-developed, well-nourished,slightly obese, pleasant female, in no apparent distress. Sclera anicteric. Conjunctiva pink. Oropharynx clear. No oral thrush. No aphthous ulcers. There is no adenopathy, thyromegaly, or JVD. No peripheral stigmata of inflammatory bowel disease or chronic liver disease on exam. No spiders on the anterior chest wall. Breast & pelvic exams: API. No CVA tenderness. No spine tenderness. Lungs: clear to A&P. No wheezing, rales, or rhonchi. Heart exam: regular rate rhythm S1 and S2 without any murmur. Abdominal exam: normal bowel sounds, slightly obese, minimally distended belly, epigastric tenderness, without guarding or rebound. No mass. No organomegaly. Negative Fountain sign. No fluid shift. No pulsatile mass. No epigastric bruit. Digital rectal exam: deferred by patient ("will have outpt baseline colonoscopy with +FHx colon Ca"). Extremities: without C, C, or E. No palpable cords. No acute arthropathy. No rashes. No palmar erythema. No Dupuytren's contractures. Distal pulses 2+ bilaterally. DTRs 2+ bilaterally. Alert and oriented x 3. Motor 5/5 B/L. Right handed. CN II-XII intact. No tremor. No asterixis. Results Pertinent Lab Results: Laboratory Tests 07/06 07/06 0936 0731 Chemistry Sodium (137 - 145 mmol/L) 140 Potassium (3.5 - 5.1 mmol/L) 3.6 Chloride (98 - 107 mmol/L) 107 Carbon Dioxide (22 - 30 mmol/L) 25 Anion Gap (5 - 16) 7 BUN (7 - 17 mg/dL) 8 Creatinine (0.5 - 1.0 mg/dL) 0.6 Estimated GFR (>60 ml/min) > 60 BUN/Creatinine Ratio (7 - 25 %) 13.3 Total Bilirubin (0.2 - 1.3 mg/dL) 0.8 Direct Bilirubin (< 0.4 mg/dL) 0.4 AST (14 - 36 U/L) 24 ALT (9 - 52 U/L) 46 Alkaline Phosphatase (<127 U/L) 86 Total Protein (6.3 - 8.2 g/dL) 5.6 L Albumin (3.5 - 5.0 g/dL) 2.9 L Triglycerides (<150 mg/dL) 148 Cholesterol (<200 MG/DL) 133 LDL Cholesterol, Calc (65 - 129 mg/dL) 85 HDL Cholesterol (40 - 60 mg/dL) 19 L Cholesterol/HDL Ratio (0.00 - 4.23 %) 7 H Hematology CBC w Diff NO MAN DIFF REQ WBC (4.8 - 10.8 /CUMM) 7.8 RBC (4.20 - 5.40 /CUMM) 3.80 L Hgb (12.0 - 16.0 G/DL) 10.8 L Hct (37 - 47 %) 32.2 L MCV (81.0 - 99.0 FL) 84.7 MCH (27.0 - 31.0 PG) 28.4 MCHC (33.0 - 37.0 G/DL) 33.6 RDW (11.5 - 14.5 %) 13.7 Plt Count (130 - 400 /CUMM) 195 MPV (7.4 - 10.4 FL) 8.9 Gran % (42.2 - 75.2 %) 69.1 Lymphocytes % (20.5 - 51.1 %) 20.7 Monocytes % (1.7 - 9.3 %) 6.2 Eosinophils % (0 - 5 %) 3.8 Basophils % (0.0 - 2.0 %) 0.2 Absolute Granulocytes (1.4 - 6.5 /CUMM) 5.4 Absolute Lymphocytes (1.2 - 3.4 /CUMM) 1.6 Absolute Monocytes (0.10 - 0.60 /CUMM) 0.5 Absolute Eosinophils (0.0 - 0.7 /CUMM) 0.3 Absolute Basophils (0.0 - 0.2 /CUMM) 0 07/05 07/05 1828 1822 Chemistry Sodium (137 - 145 mmol/L) 139 Potassium (3.5 - 5.1 mmol/L) 3.7 Chloride (98 - 107 mmol/L) 100 Carbon Dioxide (22 - 30 mmol/L) 26 Anion Gap (5 - 16) 13 BUN (7 - 17 mg/dL) 13 Creatinine (0.5 - 1.0 mg/dL) 0.6 Estimated GFR (>60 ml/min) > 60 BUN/Creatinine Ratio (7 - 25 %) 21.7 Glucose (65 - 99 mg/dL) 93 Lactic Acid (0.7 - 2.1 mmol/L) 1.1 Calcium (8.4 - 10.2 mg/dL) 9.3 Phosphorus (2.5 - 4.5 mg/dL) 4.0 Magnesium (1.6 - 2.3 mg/dL) 2.0 Total Bilirubin (0.2 - 1.3 mg/dL) 0.8 AST (14 - 36 U/L) 33 ALT (9 - 52 U/L) 57 H Alkaline Phosphatase (<127 U/L) 125 Lactate Dehydrogenase (313 - 618 U/L) 476 C-Reactive Prot, Quant (<1.0 mg/dL) 6.3 H Total Protein (6.3 - 8.2 g/dL) 7.3 Albumin (3.5 - 5.0 g/dL) 4.1 Globulin (1.9 - 4.2 gm/dL) 3.2 Albumin/Globulin Ratio (1.1 - 2.2 %) 1.3 Lipase (23 - 300 U/L) 2325 H Hematology CBC w Diff NO MAN DIFF REQ WBC (4.8 - 10.8 /CUMM) 12.2 H RBC (4.20 - 5.40 /CUMM) 4.57 Hgb (12.0 - 16.0 G/DL) 12.8 Hct (37 - 47 %) 38.6 MCV (81.0 - 99.0 FL) 84.5 MCH (27.0 - 31.0 PG) 28.1 MCHC (33.0 - 37.0 G/DL) 33.3 RDW (11.5 - 14.5 %) 14.0 Plt Count (130 - 400 /CUMM) 281 MPV (7.4 - 10.4 FL) 8.3 Gran % (42.2 - 75.2 %) 70.9 Lymphocytes % (20.5 - 51.1 %) 20.3 L Monocytes % (1.7 - 9.3 %) 5.9 Eosinophils % (0 - 5 %) 2.6 Basophils % (0.0 - 2.0 %) 0.3 Absolute Granulocytes (1.4 - 6.5 /CUMM) 8.7 H Absolute Lymphocytes (1.2 - 3.4 /CUMM) 2.5 Absolute Monocytes (0.10 - 0.60 /CUMM) 0.7 H Absolute Eosinophils (0.0 - 0.7 /CUMM) 0.3 Absolute Basophils (0.0 - 0.2 /CUMM) 0 Urines Urine Color (YEL,AMB,STR) YEL Urine Clarity (CLEAR) CLEAR Urine pH (5.0 - 8.0) 6.0 Ur Specific [place] (1.001 - 1.035) 1.025 Urine Protein (NEG,<30 MG/DL) TRACE H Urine Ketones (NEG) NEG Urine Nitrite (NEG) NEG Urine Bilirubin (NEG) NEG Urine Urobilinogen (0.1 - 1.0 EU/dl) 0.2 Ur Leukocyte Esterase (NEG) NEG Ur Microscopic SEDIMENT EXAMINED Urine RBC (0 - 5 /HPF) RARE Urine WBC (0 - 2 /HPF) 5-10 H Ur Epithelial Cells (NONE,FEW) MANY H Urine Mucus (FEW,NONE) FEW Urine Hemoglobin (NEG) NEG Urine Glucose (N MG/DL) NEG Urine Test NEGATIVE Imaging/Other Studies: 07/05/17: CT ABD & PELVIS W IV CONTRAST- IMPRESSION: 1. Mild peripancreatic fat stranding nonspecific however compatible with patient's history of pancreatitis. There is hypodense cystic area within the body of the pancreas 3.4 cm, this could be evolving pseudocyst versus pancreatic neoplastic mass. Consider follow-up nonurgent MRI when patient's condition permits. 2. There is a free fluid in the dependent portion of the pelvis. 3. Pleural-based density RIGHT lower lobe 8 x 4 mm. This could be a noncalcified pleural plaque versus lung nodule. Please see below for follow-up recommendations. 4. Tiny nonobstructing RIGHT kidney stone. Tiny hypodensities in the kidneys too small to characterize. 5. Bulky uterus, there is probably LEFT uterine mass not well visible on CT scan, recommend follow-up nonemergent ultrasound. (Referring physician will be called, alerted of the above findings and recommendations. ) According to the UPDATED 2017 Fleischner Society recommendations, the advised follow-up imaging for solid nodules < 6 mm is: LOW RISK PATIENT: No routine follow-up. HIGH RISK PATIENT: Optional CT at 12 months. DICTATED BY: Ness Mccormack MD DATE/TIME DICTATED:07/05/17202007/06/17: US ABDOMEN LIMITED (RUQ)- IMPRESSION: Normal liver & GB, without dilated IHD/EHD. CBD 4 mm. No gallstones seen. 3.2 x 3.4 x 3.3 cm complex partially solid partially cystic lesion in the body of the pancreas. 6 mm right renal stone, without hydronephrosis. DICTATED BY: Alexa Lee MD DATE/TIME DICTATED:07/06/1792807/06/17: EKG- NSR @ 94, nl axis, nl intervals, without acute ischemic changes. 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 Julianne Omer for CLINICAL LAB SPECIALIST, who presented to the [facility] 07/05/17, at 5:47 PM, complaining of pressure-like epigastric pain & bloating, since 07/03/17, "7 out of 10" and constant in nature, radiating to the mid-back. She has a known history of a pancreatic cyst, incidentally found in 10/2016, when she fell of the roof of a stationary car, while camping, and had a CT abdomen at [facility]. She was not compliant with a suggested EUS then. She does not have a GI MD. She had never had documented pancreatitis. She never had an EGD or colonoscopy. On p.m. 07/03/17, the patient noted epigastric pain, which subsided, only to recur Friday p.m., after she had 3 drinks EtOH. Her symptoms persisted and she went to a walk-in clinic 07/05/17 & was sent to [facility], but waited 3 hours and left without being seen. Upon arrival to the [facility], BP 134/89, P 98, R 20, T 98.2 (Tm 99), O2 sat RA 97%. She was given IV NS & MS in the ER. She denied any nausea, vomiting, or diarrhea. The patient is an ex-5 pk yr cigarette smoker, D/C 2007. There is history of mild to moderate EtOH, approximately 3 times a month. She did have 3 drinks of EtOH Cristhian evening , prior to the onset of symptoms. Her GB is intact. She denied using any NSAIDs, Sulfa, thiazides, or BCP. Her symptoms were better when leaning forward. She denied any chest pain, SOB, palpitation, jaundice, dark urine, light stool, pruritus, abdominal trauma, weight loss, change in appetite, symptoms of UTI, or URI. She intentionally lost 15 lbs 6 months [employer] on a ketogenic diet, but had since regained it back. She has used marijuana for the past 6 months for her anxiety, usually every Friday. She denied any history of gallstones. 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 She was on outpt Klonopin & Vyvanse, which are not known to cause pancreatitis. She denied any new medications regarding the pancreatitis. She denied any FFI, GERD, odynophagia, dysphagia, early satiety, hematemesis, melena , diarrhea, constipation, obstipation, tenesmus, or BRBPR. There is a +FHx GBD ( patient's father). There is a +FHx colon Ca (MU- 50's, who also had Crohn's disease. There is a +FHx colon polyps (F). There is no FHx pancreatitis, additional GI disease or GI Ca, or inherited liver disease. The patient was admitted to General Medicine. 07/05/17: 6:22 p.m.- Admission labs- WBC 12.2 (71% gran/9 gran Ab), H/H 12.8/ 38.6, MCV 84.5, RDW 14.0, PLT 281, glucose 93, BUN/Cr 13/0.6, GFR > 60, Na 139, K 3.7, HCO3 26, AG 13, lactate 1.1, Ca 9.3, Mg 2.0, PO4 4.0, lipase 2325, albumin 4.1, globulin 3.2, TBil 0.8, alk phos 125, AST 33, ALT 57, LDH 476, * elevated CRP 6.3. 07/05/17: U/A- clear, yellow, 1.025, 6.0, rare RBC, 5-10 WBC, many epith, tr protein, micro- otherwise neg; neg nitrite, neg esterase. 07/05/17: U preg- neg. 07/06/17: WBC 7.8, H/H 10.8/32.2, MCV 84.7, RDW 13.7, PLT 195, BUN/Cr 8/0.6, GFR > 60, Na 140, K 3.6, HCO3 25, AG 7, TChol 133, *TG 148 07/05/17: CT ABD & PELVIS W IV CONTRAST- IMPRESSION: 1. Mild peripancreatic fat stranding nonspecific however compatible with patient's history of pancreatitis. There is hypodense cystic area within the body of the pancreas 3.4 cm, this could be evolving pseudocyst versus pancreatic neoplastic mass. Consider follow-up nonurgent MRI when patient's condition permits. 2. There is a free fluid in the dependent portion of the pelvis. 3. Pleural-based density RIGHT lower lobe 8 x 4 mm. This could be a noncalcified pleural plaque versus lung nodule. Please see below for follow-up recommendations. 4. Tiny nonobstructing RIGHT kidney stone. Tiny hypodensities in the kidneys too small to characterize. 5. Bulky uterus, there is probably LEFT uterine mass not well visible on CT scan, recommend follow-up nonemergent ultrasound. (Referring physician will be called, alerted of the above findings and recommendations. ) According to the UPDATED 2017 Fleischner Society recommendations, the advised follow-up imaging for solid nodules < 6 mm is: LOW RISK PATIENT: No routine follow-up. HIGH RISK PATIENT: Optional CT at 12 months. DICTATED BY: Easton LEROY,Ness DATE/TIME DICTATED:07/05/17202007/06/17: US ABDOMEN LIMITED (RUQ)- IMPRESSION: Normal liver & GB, without dilated IHD/EHD. CBD 4 mm. No gallstones seen. 3.2 x 3.4 x 3.3 cm complex partially solid partially cystic lesion in the body of the pancreas. 6 mm right renal stone, without hydronephrosis. DICTATED BY: Alexa Lee MD DATE/TIME DICTATED:07/06/1792807/06/17: EKG- NSR @ 94, nl axis, nl intervals, without acute ischemic changes. *On 07/05/17 admission, the patient had 1 grave sign by Alaina criteria ( borderline elevated LDH), & 0 grave signs by BiSAP criteria, although no CXR was done to rule out pleural effusions (none seen at the lung bases on 07/05/17: CT AP with IV contrast). Her elevated CRP was noted, regarding prognostic purposes, although it was obtained slightly early in the admission. There was no evidence of hemoconcentration, as her H/H & BUN had dropped appropriately, after IVF. She had essentially normal LFTs, normal TG, & normal liver/GB/CBD on sono. Neither Klonopin nor Vyvanse are known to commonly cause pancreatitis. She is an ex-5 pk yr cigarette smoker, D/C 2007, & has a history of mild to moderate EtOH. *The 3.2 x 3.4 x 3.3 cm complex partially solid, partially cystic lesion in the body of the pancreas was noted (incidentally found on CT at [facility] in 10/2016; never worked up, per patient). Rule out evolving pseudocyst vs. IPMN vs. cystadenoma vs. cystadenoCa/adenoCa, etc. Rule out neuroendocrine tumor. Rule out pancreatic ductal stricture. Rule out pancreas divisum ( although this is a debatable entity, in terms of its cause and effect relationship, regarding pancreatitis). Rule out autoimmune pancreatitis. Doubt penetrating ulcer. Doubt biliary etiology. There was very mild nonspecific peripancreatic fat stranding around the body of the pancreas. *SUGGEST: Sips of clears po as tolerated. Consider switching IV NS @ 200 cc/hr to Ringer's Lactate @ 200 cc/hr, as the latter is less likely to be associated with the development of lactic acidosis. Strict I/O's. Watch for hemoconcentration (i.e.- rising H/H or BUN, despite IVF), which would be a poor prognostic sign. Antiemetics as needed. Narcotic analgesics as needed. Avoid NSAIDS. *Get CXR to rule out pleural effusion. *Check serum CA 19- 9 & IgG4 levels. *Consider checking full Hep A, B, & C serologies, with minimally elevated ALT. *Eventual outpt EUS, after pancreatitis "cools down" with probable FNA. This will probably be a more useful study than MRCP (MRI/MRCP can subsequently be used to serially monitor the pancreas, depending on the EUS findings). Avoid EtOH. DVT prophylaxis. Mobilize patient as tolerated. As an aside, the patient should have a baseline colonoscopy later this year, once her pancreatic issues are addressed, based on the +FHx early onset colon Ca (MU- 50's, who also had Crohn's disease), as well as +FHx colon polyps (F). Incidentally, the patient was advised to follow-up with the medical team & CLINICAL LAB SPECIALIST for the nonspecific RLL pleural based density, the tiny nonobstructing right renal stone, & the questionable left uterine mass (? need for outpt TV sono, etc.). The patient was given my office number for future reference. Further GI recommendations to follow, depending on clinical course. Problem List: 1. Pancreatitis 2. Pancreatic cyst 3. Abdominal pain 4. Family history of gallbladder disease in father 5. Family history of malignant neoplasm of colon in relative diagnosed when older than 50 years of age 6. Family history of Crohn's disease Copies To: Jermaine LEROY,Tarah; Griselda LEROY,Edilberto; Kan LEROY,Julianne; Antonietta Salinas APRN Consult Acknowledgment - Thank you for your consult request.
[2017-07-06 15:05] VITALS: BP 126/68
--- NOTE | 2017-07-06 20:24 | RADIOLOGY REPORT ---
EXAMINATION: XR PORTABLE CHEST CLINICAL INFORMATION: Baseline radiograph. Concern for pleural effusion. COMPARISON: None TECHNIQUE: Portable frontal view of the chest was obtained. FINDINGS: No significant abnormality is noted involving the heart, lungs, mediastinum, bony thorax or soft tissues. IMPRESSION: Unremarkable examination.
[2017-07-06 22:01] VITALS: BP 180/90
[2017-07-06 22:03] VITALS: BP 120/70
[2017-07-07 06:20] VITALS: BP 110/58
--- NOTE | 2017-07-07 07:24 | PN- Housestaff ---
See Addendum Subjective Follow-up For: Pancreatitis Pancreatic cyst Subjective: Patient reports she was unable to tolerate clear liquids and felt nauseated. Review of Systems Constitutional: Reports: see HPI. Objective Last 24 Hrs of Vital Signs/I&O Vital Signs Date Time Temp Pulse Resp B/P B/P Pulse O2 O2 Flow FiO2 Mean Ox Delivery Rate 07/08 619 98.1 87 18 110/58 95 Room Air 07/06 2203 99.0 92 20 120/70 96 07/06 1505 97.8 105 20 126/68 97 Intake & Output 07/07 0800 07/07 0000 07/06 1600 Intake Total 50 1200 2080 Output Total 300 Balance 50 900 2080 Intake, IV 600 1600 Intake, Oral 50 600 480 Number 0 Bowel Movements Output, Urine 300 Patient 204 lb Weight Weight Bed scale Measurement Method Physical Exam General Appearance: Alert, Oriented X3, Cooperative, No Acute Distress Cardiovascular: Regular Rate, Normal S1, Normal S2 Lungs: Clear to Auscultation, Normal Air Movement Abdomen: Normal Bowel Sounds, Soft, No Tenderness Current Medications: Current Medications Sig/Marco Start time Last Medication Dose Route Stop Time Status Admin Acetaminophen 650 MG ONCE ONE 07/06 2100 DC 07/06 PO 07/06 2101 2145 Acetaminophen 1,000 MG Q6H PRN 07/06 1400 AC 07/06 N/A 1 UNIT IV 1407 Clonazepam 1 MG AT BEDTIME PRN 07/05 2300 AC 07/06 PO 07/12 2259 2145 Enoxaparin Sodium 40 MG DAILY 07/06 1000 AC 07/06 SC 0929 Lactated Ringer's 1,000 ML ONCE ONE 07/06 1600 DC 07/06 IV 07/06 2059 1658 Methylphenidate HCl 10 MG TID 07/05 2335 AC PO Morphine Sulfate 2 MG Q6P PRN 07/05 2245 AC 07/06 IV 2145 Ondansetron HCl 4 MG ONCE ONE 07/06 1945 DC 07/06 IV 07/06 194 194 Sodium Chloride 1,000 ML Q5 07/06 0800 DC 07/06 IV 1507 Last 24 Hrs of Lab/Chris Results Last 24 Hrs of Labs/Mics: Laboratory Tests 07/06/17 0936: Total Bilirubin 0.8, Direct Bilirubin 0.4, AST 24, ALT 46, Alkaline Phosphatase 86, Total Protein 5.6 L, Albumin 2.9 L Assessment/Plan Assessment: Ms. Hilliard is a 42-year-old female with past medical history significant for ADHD on amphetamines and anxiety/insomnia came with chief complaint of epigastric pain since Friday Problem list: Pancreatitis most likely 2/2 cholelithiasis Pancreatic cyst Plan: US abd showed no gallstones seen, complex partially solid partially cystic lesion in the body of the pancreas and a right renal stone CXR r/o pleural effusion Start Lactated Ringers @ 100cc/hr continue Morphine GI recommendations appreciated Obtain records from [facility] CRP for 72 hours for prognosis Diet: NPO, Advance diet as tolerated DVT prophylaxis: Mechanical and subcutaneous Lovenox CODE STATUS: Full code Problem List: 1. Pancreatic cyst 2. Pancreatitis 3. Abdominal pain Pain Ratin Pain Location: NA Pain Goal: Remain pain free Pain Plan: NA Tomorrow's Labs & Rationales: none
--- NOTE | 2017-07-07 07:42 | PN- Gastroenterology ---
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 She has a known history of a pancreatic cyst, incidentally found in 10/2016, when she fell of the roof of a stationary car, while camping, and had a CT abdomen at [facility]. She was not compliant with a suggested EUS then. She does not have a GI MD. She had never had documented pancreatitis. She never had an EGD or colonoscopy. On p.m. 07/03/17, the patient noted epigastric pain, which subsided, only to recur Friday p.m., after she had 3 drinks EtOH. Her symptoms persisted and she went to a walk-in clinic 07/05/17 & was sent to [facility], but waited 3 hours and left without being seen. Upon arrival to the [facility], BP 134/89, P 98, R 20, T 98.2 (Tm 99), O2 sat RA 97%. She was given IV NS & MS in the ER. She denied any nausea, vomiting, or diarrhea. The patient is an ex-5 pk yr cigarette smoker, D/C 2007. There is history of mild to moderate EtOH, approximately 3 times a month. She did have 3 drinks of EtOH Cristhian evening , prior to the onset of symptoms. Her GB is intact. She denied using any NSAIDs, Sulfa, thiazides, or BCP. Her symptoms were better when leaning forward. She denied any chest pain, SOB, palpitation, jaundice, dark urine, light stool, pruritus, abdominal trauma, weight loss, change in appetite, symptoms of UTI, or URI. 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 She has used marijuana for the past 6 months for her anxiety, usually every Friday. She denied any history of gallstones. LMP was 2 weeks WELDER EXPERIMENTAL. She was on outpt Klonopin & Vyvanse, which are not known to cause pancreatitis. She denied any new medications regarding the pancreatitis. She denied any FFI, GERD, odynophagia, dysphagia, early satiety, hematemesis, melena , diarrhea, constipation, obstipation, tenesmus, or BRBPR. There is a +FHx GBD ( patient's father). There is a +FHx colon Ca (MU- 50's, who also had Crohn's disease. There is a +FHx colon polyps (F). There is no FHx pancreatitis, additional GI disease or GI Ca, or inherited liver disease. The patient was admitted to General Medicine. 07/05/17: 6:22 p.m.- Admission labs- WBC 12.2 (71% gran/9 gran Ab), H/H 12.8/ 38.6, MCV 84.5, RDW 14.0, PLT 281, glucose 93, BUN/Cr 13/0.6, GFR > 60, Na 139, K 3.7, HCO3 26, AG 13, lactate 1.1, Ca 9.3, Mg 2.0, PO4 4.0, lipase 2325, albumin 4.1, globulin 3.2, TBil 0.8, alk phos 125, AST 33, ALT 57, LDH 476, * elevated CRP 6.3. 07/05/17: U/A- clear, yellow, 1.025, 6.0, rare RBC, 5-10 WBC, many epith, tr protein, micro- otherwise neg; neg nitrite, neg esterase. 07/05/17: U preg- neg. 07/06/17: WBC 7.8, H/H 10.8/32.2, MCV 84.7, RDW 13.7, PLT 195, BUN/Cr 8/0.6, GFR > 60, Na 140, K 3.6, HCO3 25, AG 7, TChol 133, *TG 148 07/05/17: CT ABD & PELVIS W IV CONTRAST- IMPRESSION: 1. Mild peripancreatic fat stranding nonspecific however compatible with patient's history of pancreatitis. There is hypodense cystic area within the body of the pancreas 3.4 cm, this could be evolving pseudocyst versus pancreatic neoplastic mass. Consider follow-up nonurgent MRI when patient's condition permits. 2. There is a free fluid in the dependent portion of the pelvis. 3. Pleural-based density RIGHT lower lobe 8 x 4 mm. This could be a noncalcified pleural plaque versus lung nodule. Please see below for follow-up recommendations. 4. Tiny nonobstructing RIGHT kidney stone. Tiny hypodensities in the kidneys too small to characterize. 5. Bulky uterus, there is probably LEFT uterine mass not well visible on CT scan, recommend follow-up nonemergent ultrasound. (Referring physician will be called, alerted of the above findings and recommendations. ) According to the UPDATED 2017 Fleischner Society recommendations, the advised follow-up imaging for solid nodules < 6 mm is: LOW RISK PATIENT: No routine follow-up. HIGH RISK PATIENT: Optional CT at 12 months. DICTATED BY: Easton LEROY,Ness DATE/TIME DICTATED:07/05/17202007/06/17: US ABDOMEN LIMITED (RUQ)- IMPRESSION: Normal liver & GB, without dilated IHD/EHD. CBD 4 mm. No gallstones seen. 3.2 x 3.4 x 3.3 cm complex partially solid partially cystic lesion in the body of the pancreas. 6 mm right renal stone, without hydronephrosis. DICTATED BY: Jesus LEROY,Alexa Johnson DATE/TIME DICTATED:07/06/1792807/06/17: EKG- NSR @ 94, nl axis, nl intervals, without acute ischemic changes. *On 07/05/17 admission, the patient had 1 grave sign by Alaina criteria ( borderline elevated LDH), & 0 grave signs by BiSAP criteria, although no CXR was done to rule out pleural effusions (none seen at the lung bases on 07/05/17: CT AP with IV contrast; subsequent 07/06/17: CXR- neg). Her elevated CRP was noted, regarding prognostic purposes, although it was obtained slightly early in the admission. There was no evidence of hemoconcentration, as her H/H & BUN had dropped appropriately, after IVF. She had essentially normal LFTs, normal TG, & normal liver/GB/CBD on sono. Neither Klonopin nor Vyvanse are known to commonly cause pancreatitis. She is an ex-5 pk yr cigarette smoker, D/C 2007, & has a history of mild to moderate EtOH. *The 3.2 x 3.4 x 3.3 cm complex partially solid, partially cystic lesion in the body of the pancreas was noted ( incidentally found on CT at [facility] in 10/2016; never worked up, per patient). Rule out evolving pseudocyst vs. IPMN vs. cystadenoma vs. cystadenoCa /adenoCa, etc. Rule out neuroendocrine tumor. Rule out pancreatic ductal stricture. Rule out pancreas divisum (although this is a debatable entity, in terms of its cause and effect relationship, regarding pancreatitis). Rule out autoimmune pancreatitis. Doubt penetrating ulcer. Doubt biliary etiology. There was very mild nonspecific peripancreatic fat stranding around the body of the pancreas. 07/06/17: PORTABLE CXR- Unremarkable examination. 07/06/17: nl LFTs xc alb 2.9, glob2.7. *As of 07/07/17, patient remained hemodynamically stable & afebrile (T 98.1, Tm 99), with O2 sat RA 95%. She was +6.7L over the past 24 hrs. She has required MS frequently for her abdominal pain, which remained about the same. She was intolerant of broth, but tolerated sips of water. She had mild nausea, without vomiting. She denied any vomiting, chest pain, shortness of breath, fevers, chills, confusion, or jaundice. She was ambulating. *SUGGEST: *NPO except ice chips for now, & if improves, resume clears po later today. * Resume Ringer's Lactate @ 100 cc/hr. Strict I/O's. *Watch for hemoconcentration (i.e.- rising H/H or BUN, despite IVF), which would be a poor prognostic sign. Follow-up lytes. Antiemetics as needed. Narcotic analgesics as needed. Avoid NSAIDS. *Check serum CA 19-9 & IgG4 levels. *Consider checking full Hep A, B, & C serologies, with minimally elevated ALT. *Eventual outpt EUS, after pancreatitis "cools down" with probable FNA. This will probably be a more useful study than MRCP (MRI/MRCP can subsequently be used to serially monitor the pancreas, depending on the EUS findings). Avoid EtOH. DVT prophylaxis. Mobilize patient as tolerated. As an aside, the patient should have a baseline colonoscopy later this year, once her pancreatic issues are addressed, based on the +FHx early onset colon Ca (MU- 50's, who also had Crohn's disease), as well as +FHx colon polyps (F). Incidentally, the patient was advised to follow-up with the medical team & VISUAL BASIC DEVELOPER for the nonspecific RLL pleural based density, the tiny nonobstructing right renal stone, & the questionable left uterine mass (? need for outpt TV sono, etc.). The patient was given my office number for future reference. *Further GI recommendations to follow, depending on clinical course. Problem List: 1. Pancreatitis 2. Pancreatic cyst 3. Abdominal pain 4. Family history of gallbladder disease in father 5. Family history of malignant neoplasm of colon in relative diagnosed when older than 50 years of age 6. Family history of Crohn's disease Subjective Subjective: 07/06/17: PORTABLE CXR- Unremarkable examination. 07/06/17: nl LFTs xc alb 2.9, glob2.7. *As of 07/07/17, patient remained hemodynamically stable & afebrile (T 98.1, Tm 99), with O2 sat RA 95%. She was +6.7L over the past 24 hrs. She has required MS frequently for her abdominal pain, which remained about the same. She was intolerant of broth, but tolerated sips of water. She had mild nausea, without vomiting. She denied any vomiting, chest pain, shortness of breath, fevers, chills, confusion, or jaundice. She was ambulating. Review of Systems: Full 14 point ROS otherwise unremarkable, and as per HPI. Constitutional: Reports: no symptoms. EENTM: Reports: no symptoms. Cardiovascular: Reports: no symptoms. Respiratory: Reports: no symptoms. GI: Reports: abdominal pain, bloating, mild nausea. Genitourinary: Reports: no symptoms. Musculoskeletal: Reports: no symptoms. Skin: Reports: no symptoms. Neurological/Psychological: Reports: anxiety, ADHD. Hematologic/Endocrine: Reports: no symptoms. Review of Systems All Other Systems: Reviewed and Negative Objective Vital Signs and I&Os Vital Signs Date Time Temp Pulse Resp B/P B/P Pulse O2 O2 Flow FiO2 Mean Ox Delivery Rate 07/07 0620 98.1 87 18 110/58 95 Room Air 07/06 2203 99.0 92 20 120/70 96 07/06 1505 97.8 105 20 126/68 97 Intake & Output 07/07 1600 07/07 0400 07/06 0400 07/05 040 Intake Total 50 1200 3830 2000 Output Total 300 Balance 50 900 3830 2000 Intake, IV 600 3350 2000 Intake, Oral 50 600 480 0 Number 0 Bowel Movements Output, Urine 300 Patient 204 lb 203 lb 180 lb Weight Weight Bed scale Bed scale Reported by Patient Measurement Method Physical Exam: Well-developed, well-nourished,slightly obese, pleasant female, in no apparent distress. Nontoxic appearing.Sclera anicteric. Conjunctiva pink. Oropharynx clear. No oral thrush. No aphthous ulcers. There is no adenopathy, thyromegaly, or JVD. No peripheral stigmata of inflammatory bowel disease or chronic liver disease on exam. No spiders on the anterior chest wall. Breast & pelvic exams: API. No CVA tenderness. No spine tenderness. Lungs: clear to A&P. No wheezing, rales, or rhonchi. Heart exam: regular rate rhythm S1 and S2 without any murmur. Abdominal exam: normal bowel sounds, slightly obese, minimally distended belly, epigastric tenderness, without guarding or rebound. No mass. No organomegaly. Negative Fountain sign. No fluid shift. No pulsatile mass. No epigastric bruit. Digital rectal exam: deferred by patient ("deferred for outpt baseline colonoscopy with +FHx colon Ca"). Extremities: without C, C, or E. No palpable cords. No acute arthropathy. No rashes. No palmar erythema. No Dupuytren's contractures. Distal pulses 2+ bilaterally. DTRs 2+ bilaterally. Alert and oriented x 3. Motor 5/5 B/L. Right handed. CN II-XII intact. No tremor. No asterixis. Current Medications: Current Medications Sig/Marco Start time Last Medication Dose Route Stop Time Status Admin Acetaminophen 650 MG ONCE ONE 07/06 2100 DC 07/06 PO 07/06 2101 2145 Acetaminophen 1,000 MG Q6H PRN 07/06 1400 AC 07/06 N/A 1 UNIT IV 1407 Clonazepam 1 MG AT BEDTIME PRN 07/05 2300 AC 07/06 PO 07/12 2258 214 Enoxaparin Sodium 40 MG DAILY 07/06 1000 AC 07/06 SC 0929 Lactated Ringer's 1,000 ML ONCE ONE 07/06 1600 DC 07/06 IV 07/06 2058 165 Methylphenidate HCl 10 MG TID 07/05 2335 AC PO Morphine Sulfate 2 MG Q6P PRN 07/05 2245 AC 07/06 IV 214 Ondansetron HCl 4 MG ONCE ONE 07/06 194 DC 07/06 IV 07/06 194 194 Sodium Chloride 1,000 ML Q5 07/06 0800 DC 07/06 IV 1507 Results Pertinent Lab Results: Laboratory Tests 07/06 07/06 0936 0731 Chemistry Sodium (137 - 145 mmol/L) 140 Potassium (3.5 - 5.1 mmol/L) 3.6 Chloride (98 - 107 mmol/L) 107 Carbon Dioxide (22 - 30 mmol/L) 25 Anion Gap (5 - 16) 7 BUN (7 - 17 mg/dL) 8 Creatinine (0.5 - 1.0 mg/dL) 0.6 Estimated GFR (>60 ml/min) > 60 BUN/Creatinine Ratio (7 - 25 %) 13.3 Total Bilirubin (0.2 - 1.3 mg/dL) 0.8 Direct Bilirubin (< 0.4 mg/dL) 0.4 AST (14 - 36 U/L) 24 ALT (9 - 52 U/L) 46 Alkaline Phosphatase (<127 U/L) 86 Total Protein (6.3 - 8.2 g/dL) 5.6 L Albumin (3.5 - 5.0 g/dL) 2.9 L Triglycerides (<150 mg/dL) 148 Cholesterol (<200 MG/DL) 133 LDL Cholesterol, Calc (65 - 129 mg/dL) 85 HDL Cholesterol (40 - 60 mg/dL) 19 L Cholesterol/HDL Ratio (0.00 - 4.23 %) 7 H Hematology CBC w Diff NO MAN DIFF REQ WBC (4.8 - 10.8 /CUMM) 7.8 RBC (4.20 - 5.40 /CUMM) 3.80 L Hgb (12.0 - 16.0 G/DL) 10.8 L Hct (37 - 47 %) 32.2 L MCV (81.0 - 99.0 FL) 84.7 MCH (27.0 - 31.0 PG) 28.4 MCHC (33.0 - 37.0 G/DL) 33.6 RDW (11.5 - 14.5 %) 13.7 Plt Count (130 - 400 /CUMM) 195 MPV (7.4 - 10.4 FL) 8.9 Gran % (42.2 - 75.2 %) 69.1 Lymphocytes % (20.5 - 51.1 %) 20.7 Monocytes % (1.7 - 9.3 %) 6.2 Eosinophils % (0 - 5 %) 3.8 Basophils % (0.0 - 2.0 %) 0.2 Absolute Granulocytes (1.4 - 6.5 /CUMM) 5.4 Absolute Lymphocytes (1.2 - 3.4 /CUMM) 1.6 Absolute Monocytes (0.10 - 0.60 /CUMM) 0.5 Absolute Eosinophils (0.0 - 0.7 /CUMM) 0.3 Absolute Basophils (0.0 - 0.2 /CUMM) 0 07/05 07/05 1828 1822 Chemistry Sodium (137 - 145 mmol/L) 139 Potassium (3.5 - 5.1 mmol/L) 3.7 Chloride (98 - 107 mmol/L) 100 Carbon Dioxide (22 - 30 mmol/L) 26 Anion Gap (5 - 16) 13 BUN (7 - 17 mg/dL) 13 Creatinine (0.5 - 1.0 mg/dL) 0.6 Estimated GFR (>60 ml/min) > 60 BUN/Creatinine Ratio (7 - 25 %) 21.7 Glucose (65 - 99 mg/dL) 93 Lactic Acid (0.7 - 2.1 mmol/L) 1.1 Calcium (8.4 - 10.2 mg/dL) 9.3 Phosphorus (2.5 - 4.5 mg/dL) 4.0 Magnesium (1.6 - 2.3 mg/dL) 2.0 Total Bilirubin (0.2 - 1.3 mg/dL) 0.8 AST (14 - 36 U/L) 33 ALT (9 - 52 U/L) 57 H Alkaline Phosphatase (<127 U/L) 125 Lactate Dehydrogenase (313 - 618 U/L) 476 C-Reactive Prot, Quant (<1.0 mg/dL) 6.3 H Total Protein (6.3 - 8.2 g/dL) 7.3 Albumin (3.5 - 5.0 g/dL) 4.1 Globulin (1.9 - 4.2 gm/dL) 3.2 Albumin/Globulin Ratio (1.1 - 2.2 %) 1.3 Lipase (23 - 300 U/L) 2325 H Hematology CBC w Diff NO MAN DIFF REQ WBC (4.8 - 10.8 /CUMM) 12.2 H RBC (4.20 - 5.40 /CUMM) 4.57 Hgb (12.0 - 16.0 G/DL) 12.8 Hct (37 - 47 %) 38.6 MCV (81.0 - 99.0 FL) 84.5 MCH (27.0 - 31.0 PG) 28.1 MCHC (33.0 - 37.0 G/DL) 33.3 RDW (11.5 - 14.5 %) 14.0 Plt Count (130 - 400 /CUMM) 281 MPV (7.4 - 10.4 FL) 8.3 Gran % (42.2 - 75.2 %) 70.9 Lymphocytes % (20.5 - 51.1 %) 20.3 L Monocytes % (1.7 - 9.3 %) 5.9 Eosinophils % (0 - 5 %) 2.6 Basophils % (0.0 - 2.0 %) 0.3 Absolute Granulocytes (1.4 - 6.5 /CUMM) 8.7 H Absolute Lymphocytes (1.2 - 3.4 /CUMM) 2.5 Absolute Monocytes (0.10 - 0.60 /CUMM) 0.7 H Absolute Eosinophils (0.0 - 0.7 /CUMM) 0.3 Absolute Basophils (0.0 - 0.2 /CUMM) 0 Urines Urine Color (YEL,AMB,STR) YEL Urine Clarity (CLEAR) CLEAR Urine pH (5.0 - 8.0) 6.0 Ur Specific [place] (1.001 - 1.035) 1.025 Urine Protein (NEG,<30 MG/DL) TRACE H Urine Ketones (NEG) NEG Urine Nitrite (NEG) NEG Urine Bilirubin (NEG) NEG Urine Urobilinogen (0.1 - 1.0 EU/dl) 0.2 Ur Leukocyte Esterase (NEG) NEG Ur Microscopic SEDIMENT EXAMINED Urine RBC (0 - 5 /HPF) RARE Urine WBC (0 - 2 /HPF) 5-10 H Ur Epithelial Cells (NONE,FEW) MANY H Urine Mucus (FEW,NONE) FEW Urine Hemoglobin (NEG) NEG Urine Glucose (N MG/DL) NEG Urine Test NEGATIVE Imaging/Other Studies: 07/05/17: CT ABD & PELVIS W IV CONTRAST- IMPRESSION: 1. Mild peripancreatic fat stranding nonspecific however compatible with patient's history of pancreatitis. There is hypodense cystic area within the body of the pancreas 3.4 cm, this could be evolving pseudocyst versus pancreatic neoplastic mass. Consider follow-up nonurgent MRI when patient's condition permits. 2. There is a free fluid in the dependent portion of the pelvis. 3. Pleural-based density RIGHT lower lobe 8 x 4 mm. This could be a noncalcified pleural plaque versus lung nodule. Please see below for follow-up recommendations. 4. Tiny nonobstructing RIGHT kidney stone. Tiny hypodensities in the kidneys too small to characterize. 5. Bulky uterus, there is probably LEFT uterine mass not well visible on CT scan, recommend follow-up nonemergent ultrasound. (Referring physician will be called, alerted of the above findings and recommendations. ) According to the UPDATED 2017 Fleischner Society recommendations, the advised follow-up imaging for solid nodules < 6 mm is: LOW RISK PATIENT: No routine follow-up. HIGH RISK PATIENT: Optional CT at 12 months. DICTATED BY: Easton LEROY,Ness DATE/TIME DICTATED:07/05/17202007/06/17: US ABDOMEN LIMITED (RUQ)- IMPRESSION: Normal liver & GB, without dilated IHD/EHD. CBD 4 mm. No gallstones seen. 3.2 x 3.4 x 3.3 cm complex partially solid partially cystic lesion in the body of the pancreas. 6 mm right renal stone, without hydronephrosis. DICTATED BY: Jesus LEROY,Alexa Johnson DATE/TIME DICTATED:07/06/1792807/06/17: EKG- NSR @ 94, nl axis, nl intervals, without acute ischemic changes. 07/06/17: PORTABLE CXR- Unremarkable examination.
[2017-07-07 10:01] LABS: ABSOLUTE BASOPHIL COUNT 0 /CUMM (0.0-0.2); ABSOLUTE EOSINOPHIL COUNT 0.2 /CUMM (0.0-0.7); ABSOLUTE GRANULOCYTE CT 4.4 /CUMM (1.4-6.5); ABSOLUTE LYMPH COUNT 1.6 /CUMM (1.2-3.4); ABSOLUTE MONOCYTE COUNT 0.4 /CUMM (0.10-0.60); BASOPHIL % 0.5 % (0.0-2.0); EOSINOPHIL % 3.1 % (0-5); GRANULOCYTE % 66.2 % (42.2-75.2); HEMATOCRIT 30.9 % (37-47); MEAN CORPUSCULAR HGB 28.3 PG (27.0-31.0); MEAN CORPUSCULAR HGB CONC 33.5 G/DL (33.0-37.0); MEAN CORPUSCULAR VOLUME 84.5 FL (81.0-99.0); MEAN PLATELET VOLUME 9.2 FL (7.4-10.4); PLATELET COUNT 191 /CUMM (130-400); RBC DISTRIBUTION WIDTH 13.8 % (11.5-14.5); RED BLOOD CELL CT 3.65 /CUMM (4.20-5.40); WHITE BLOOD CELL COUNT 6.7 /CUMM (4.8-10.8)
[2017-07-07 14:48] VITALS: BP 118/64
[2017-07-07 22:50] VITALS: BP 112/70
[2017-07-08 06:55] VITALS: BP 110/70
--- NOTE | 2017-07-08 07:14 | PN- Housestaff ---
Wendy Abraham 07/08/17 0714: Subjective Follow-up For: Pancreatitis Pancreatic cyst Subjective: No complaints or acute events overnight. Patient reports she tolerated her clear liquid diet well. She denies nausea, vomiting, abdominal discomfort Review of Systems Constitutional: Reports: see HPI. Objective Last 24 Hrs of Vital Signs/I&O Vital Signs Date Time Temp Pulse Resp B/P B/P Pulse O2 O2 Flow FiO2 Mean Ox Delivery Rate 07/08 0655 98.4 76 20 110/70 97 Room Air 07/07 2250 98.5 92 20 112/70 97 Room Air 07/07 1448 97.4 80 20 118/64 96 Intake & Output 07/08 0800 07/08 0000 07/07 1600 Intake Total 500 420 Output Total Balance 500 420 Intake, IV 300 300 Intake, Oral 200 120 Number 0 Bowel Movements Physical Exam General Appearance: Alert, Oriented X3, Cooperative Cardiovascular: Regular Rate, Normal S1, Normal S2, No Murmurs Lungs: Clear to Auscultation, Normal Air Movement Abdomen: Normal Bowel Sounds, Soft, No Tenderness Extremities: No Edema Current Medications: Current Medications Sig/Marco Start time Last Medication Dose Route Stop Time Status Admin Acetaminophen 1,000 MG Q6H PRN 07/06 1400 AC 07/06 N/A 1 UNIT IV 1407 Clonazepam 1 MG AT BEDTIME PRN 07/05 2300 AC 07/07 PO 07/12 2259 2209 Enoxaparin Sodium 40 MG DAILY 07/06 1000 AC 07/06 SC 0929 Lactated Ringer's 1,000 ML ONCE ONE 07/07 1045 DC 07/07 IV 07/07 2044 1151 Lactated Ringer's 9,230.604 ML ONCE ONE 07/07 1030 CAN IV 07/07 1031 Methylphenidate HCl 10 MG TID 07/05 2335 AC PO Morphine Sulfate 2 MG Q6P PRN 07/05 2245 AC 07/06 IV 2145 Last 24 Hrs of Lab/Chris Results Last 24 Hrs of Labs/Mics: Laboratory Tests 07/07/17 0755: Anion Gap 12, Estimated GFR > 60, BUN/Creatinine Ratio 8.3, C-Reactive Prot, Quant > 9.0 H, C-React Prot High Sens > 15.0 H, CBC w Diff NO MAN DIFF REQ, RBC 3.65 L, MCV 84.5, MCH 28.3, MCHC 33.5, RDW 13.8, MPV 9.2, Gran % 66.2, Lymphocytes % 24.3, Monocytes % 5.9, Eosinophils % 3.1, Basophils % 0.5, Absolute Granulocytes 4.4, Absolute Lymphocytes 1.6, Absolute Monocytes 0.4, Absolute Eosinophils 0.2, Absolute Basophils 0 Assessment/Plan Assessment: Ms. Hilliard is a 42-year-old female with past medical history significant for ADHD on amphetamines and anxiety/insomnia came with chief complaint of epigastric pain since Friday Problem list: Pancreatitis may be 2/2 EtOH vs cholelithiasis vs autoimmune Pancreatic cyst Plan: US abd showed no gallstones seen, complex partially solid partially cystic lesion in the body of the pancreas and a right renal stone CXR r/o pleural effusion continue Morphine GI recommendations appreciated Obtain records from [facility] CRP for 72 hours for prognosis Diet: Full liquids, advance diet as tolerated DVT prophylaxis: Mechanical and subcutaneous Lovenox CODE STATUS: Full code Problem List: 1. Pancreatitis 2. Pancreatic cyst Pain Ratin Pain Location: NA Pain Goal: Remain pain free Pain Plan: NA Tomorrow's Labs & Rationales: none Adin Welsh MD 07/08/17 1116: Attending MD Review Statement Attending Statement Attending MD Statement: examined this patient, discuss w/resident/PA/ASSEMBLER ERECTOR, agreed w/resident/PA/ASSEMBLER ERECTOR, reviewed EMR data (avail) Attending Assessment/Plan: 42F no significant PMH admitted with epigastric pain and nausea in the setting of acute pancreatitis. No obvious etiology for pancreatitis, no gall stones noted, known pancreatic cyst is still present. Much improved today, tolerated full liquid diet this morning without pain or nausea. No complaints. 1. Acute idiopathic pancreatitis 2. Intractable nausea 3. Pancreatic cyst Plan - Continue on general medicine - Advance to regular diet - Stop fluids - Continue pain medications - Follow GI recommendations - Continue home medications - If tolerates regular diet can be discharged later today
--- NOTE | 2017-07-08 08:10 | Patient Discharge Instructions ---
Discharge Instructions General Discharge Information You were seen/treated for: Acute pancreatitis You had these procedures: none Special Instructions: Follow up with your PCP within 1 week of discharge Diet Recommended Diet: Low Fat Activity Full Activity/No Limits: Yes Acute Coronary Syndrome Inclusion Criteria At DC or during hospital stay patient has or had the following: ACS DIAGNOSIS No Discharge Core Measures Meds if any: Prescribed or Continued at Discharge Meds if any: NOT Prescribed or Continued at Discharge Congestive Heart Failure Inclusion Criteria At DC or during hospital stay patient has or had the following: CHF DIAGNOSIS No Discharge Core Measures Meds if any: Prescribed or Continued at Discharge Meds if any: NOT Prescribed or Continued at Discharge Cerebrovascular accident Inclusion Criteria At DC or during hospital stay patient has or had the following: CVA/TIA Diagnosis No Discharge Core Measures Meds if any: Prescribed or Continued at Discharge Meds if any: NOT Prescribed or Continued at Discharge Venous thromboembolism Inclusion Criteria VTE Diagnosis No VTE Type NONE VTE Confirmed by (Test) NONE Discharge Core Measures - Per Current guidelines, there needs to be overlap - treatment for the first 5 days of Warfarin therapy. - If discharged on Warfarin prior to 5 days of - overlap therapy, the patient will need to be - assessed for post discharge needs including - *Post discharge parental anticoagulation - *Warfarin and/or parental anticoagulation education - *Follow up date to check INR post discharge At least 5 days overlap therapy as Inpatient No Meds if any: Prescribed or Continued at Discharge Note: Overlap Therapy is Warfarin and Anticoagulant Meds if any: NOT Prescribed or Continued at Discharge
--- NOTE | 2017-07-08 09:26 | Discharge Summary ---
Visit Information Visit Dates Admission Date: 07/05/17 Discharge Date: 07/08/17 Hospital Course Course Attending Physician: Adin Welsh MD [facility]: Ms. Hilliard is a 42-year-old female with past medical history significant for ADHD on amphetamines and anxiety/insomnia came with chief complaint of epigastric pain. She was admitted to gen medical floor for further evaluation and management Problem list: Acute Pancreatitis Pancreatic cyst She received agressive fluid management. Gatroenterology was consulted. US of the abdomen showed a complex partially solid partially cystic lesion in the body of the pancreas and a nonobstructing right renal stone. A CXR ruled out pleural effusion. Her pain was Morphine. We advanced her diet as tolerated. She remained stable throughout her hospital course. Patient was advised to avoid alcohol and follow-up with her PCP and RN PROVIDER RELATIONS for the nonspecific RLL pleural based density, the nonobstructing right renal stone, and left uterine mass. She was referred to the sole skiver for further workup of her pancreatic cyst as an outpatient. Allergies: Coded Allergies: Penicillins (HIVES 07/05/17) coconut oil (SOB 07/05/17) Pertinent Lab Results: 07/06/17 XRY-PORTABLE CHEST XRAY FINDINGS: No significant abnormality is noted involving the heart, lungs, mediastinum, bony thorax or soft tissues. IMPRESSION: Unremarkable examination. 07/06/17 US-LIMITED ABDOMEN IMPRESSION: No gallstones seen. 3.2 x 3.4 x 3.3 cm complex partially solid partially cystic lesion in the body of the pancreas. Right renal stone. 07/05/17-185 CT ABD & PELVIS W IV CONTRAST IMPRESSION: 1. Mild peripancreatic fat stranding nonspecific however compatible with patient's history of pancreatitis. There is hypodense cystic area within the body of the pancreas 3.4 cm, this could be evolving pseudocyst versus pancreatic neoplastic mass. Consider follow-up nonurgent MRI when patient's condition permits. 2. There is a free fluid in the dependent portion of the pelvis. 3. Pleural-based density RIGHT lower lobe 8 x 4 mm. This could be a noncalcified pleural plaque versus lung nodule. Please see below for follow-up recommendations. 4. Tiny nonobstructing RIGHT kidney stone. Tiny hypodensities in the kidneys too small to characterize. 5. Bulky uterus, there is probably LEFT uterine mass not well visible on CT scan, recommend follow-up nonemergent ultrasound. Disposition Summary Disposition Principal Diagnosis: Acute Pancreatitis Additional Diagnosis: Pancreatic cyst Discharge Disposition: home or self care Discharge Instructions General Discharge Information Code Status: Full Code Patient's Diet: As tolerated Patient's Activity: Full Follow-Up Instructions/Appts: Follow up with your PCP within 1 week upon discharge Medications at Discharge Discharge Medications: Continue taking these medications: [VIVANCE] 60 Milligram ORAL DAILY Comments: NOT GIVEN DURING STAY Clonazepam (Klonopin) 1 MG TABLET 1 Tablet ORAL AT BEDTIME as needed for INSOMNIA Comments: Last Taken: 07/07 Time: 10 PM Copies To: Morena LEROY,Jose Ramon Clayton; Antonietta Salinas APRN, MD,Jose Ramon Clayton; Antonietta Salinas APRN
[2017-07-08 14:31] VITALS: BP 112/64
== END 2017-07-08 17:38 | DRG 439 ==
LOC: ERH 17:47 → ERHI 21:23 → 2NA 21:23 → ENRESERV 22:55 → 2NA 23:30
PROVIDERS: Internal Medicine; Student in an Organized Health Care Education/Training Program
DX: K85.90 Acute pancreatitis without necrosis or infection, unspecified (principal); K86.2 Cyst of pancreas; E66.9 Obesity, unspecified; K80.20 Calculus of gallbladder without cholecystitis without obstruction; N20.0 Calculus of kidney; F90.9 Attention-deficit hyperactivity disorder, unspecified type; F41.9 Anxiety disorder, unspecified; G47.00 Insomnia, unspecified; Z68.32 Body mass index [BMI] 32.0-32.9, adult; Z83.79 Family history of other diseases of the digestive system; Z80.0 Family history of malignant neoplasm of digestive organs; Z91.018 Allergy to other foods; Z88.0 Allergy status to penicillin
CPT/HCPCS: 2NASP; 36592; 71045; 74177; 81001; 81025; 82436; 93005; 93010; 96361; 96374; J0131; J1650; J7120

== ENCOUNTER 2017-08-28 04:32 | Inpatient (IN) | payer OTHER ==
[~2017-08-28] VITALS: Ht 157.5 cm; Wt 83.9 kg
[~2017-08-28 04:32] MED LIST: KLONOPIN1 M1 PO; VIVANCE PO
[2017-08-28 05:08] LABS: ABSOLUTE BASOPHIL COUNT 0 /CUMM (0.0-0.2); ABSOLUTE EOSINOPHIL COUNT 0.2 /CUMM (0.0-0.7); ABSOLUTE GRANULOCYTE CT 10.5 /CUMM (1.4-6.5); ABSOLUTE LYMPH COUNT 2.3 /CUMM (1.2-3.4); ABSOLUTE MONOCYTE COUNT 0.6 /CUMM (0.10-0.60); BASOPHIL % 0.3 % (0.0-2.0); EOSINOPHIL % 1.8 % (0-5); GRANULOCYTE % 76.6 % (42.2-75.2); HEMATOCRIT 41.7 % (37-47); MEAN CORPUSCULAR HGB 27.2 PG (27.0-31.0); MEAN CORPUSCULAR HGB CONC 33.1 G/DL (33.0-37.0); MEAN CORPUSCULAR VOLUME 82.2 FL (81.0-99.0); MEAN PLATELET VOLUME 8.5 FL (7.4-10.4); PLATELET COUNT 338 /CUMM (130-400); RBC DISTRIBUTION WIDTH 13.7 % (11.5-14.5); RED BLOOD CELL CT 5.07 /CUMM (4.20-5.40); WHITE BLOOD CELL COUNT 13.7 /CUMM (4.8-10.8)
--- NOTE | 2017-08-28 05:10 | ED GI/GU/ABDOMINAL COMPLAINT ---
History of Present Illness General Chief Complaint: Abdominal Pain/Flank Pain Stated Complaint: PER PT HERE FOR "PANCREATITIS" HX OF SAME Source: patient, family, old records Exam Limitations: no limitations Vital Signs & Intake/Output Vital Signs & Intake/Output Vital Signs Date Time Temp Pulse Resp B/P B/P Pulse O2 O2 Flow FiO2 Mean Ox Delivery Rate 08/28 0447 100 Room Air 08/28 0444 98.4 114 126/82 99 Room Air Allergies Coded Allergies: Penicillins (HIVES 08/28/17) coconut oil (SOB 08/28/17) Reconcile Medications Clonazepam (Klonopin) 1 MG TABLET 1 TAB PO AT BEDTIME PRN INSOMNIA (Reported) [VIVANCE] 60 MG PO DAILY UNK (Reported) Triage Note: TRIAGE: PATIENT TO ER FROM HOME REPORTING 810 CONOSTANT DULL/PRESSURE PAIN TO UPPER MID ABDOMEN SINCE 9PM W/ INTERMITTENT SHARP PAINS INTO MID BACK. +NAUSEA, DENIES V/D. DENIES URINARY DIFFICULTIES. Triage Nurses Notes Reviewed? yes LMP (ages 10-50): unknown ? n Is pt currently ? No Duration: day(s):, constant, continues in ED, getting worse Timing: recent history Quality/Severity: aching, severe, vomiting Location: epigastric Radiation: no radiation Activities at Onset: none Prior Abdominal Problems: similar symptoms Past Sexual History: Unobtainable at this time Modifying Factors: Worsens With: palpation. Associated Symptoms: abdominal pain, loss of appetite, nausea/vomiting HPI: 4 days prior to admission patient complains of mild epigastric discomfort similar to previous pancreatitis pain. 1 day prior to admission pain increased in severity associated with nausea. She denies fever chills diarrhea chest pain cough shortness of breath headache dysuria rash bleeding. Past History Travel History Traveled to [place] past 21 day No Medical History Any Pertinent Medical History? 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 Age 67. FATHER (HTN/post CCKY/colon polyps). Age 67. SISTER (anxiety). Age 31. MU (Crohn's disease). , Age 54; Cause: Colon cancer. Relation not specified for: Crohn's disease gallbladder disease in father malignant neoplasm of colon in relative diagnosed when older than 50 years of age Hx Contributory? No Review of Systems Review of Systems Constitutional: Reports: no symptoms. EENTM: Reports: no symptoms. Respiratory: Reports: no symptoms. Cardiovascular: Reports: no symptoms. GI: Reports: see HPI, abdominal pain, nausea. Genitourinary: Reports: no symptoms. Musculoskeletal: Reports: no symptoms. Skin: Reports: no symptoms. Neurological/Psychological: Reports: no symptoms. Hematologic/Endocrine: Reports: no symptoms. Immunologic/Allergic: Reports: no symptoms. All Other Systems: Reviewed and Negative Physical Exam Physical Exam General Appearance: well developed/nourished, alert, awake, anxious Head: atraumatic, normal appearance Eyes: Bilateral: normal appearance, PERRL, EOMI, normal inspection. Ears, Nose, Throat, Mouth: hearing grossly normal, moist mucous membrane Neck: normal inspection, supple, full range of motion, normal alignment Respiratory: normal breath sounds, chest non-tender, no respiratory distress, quiet respiration, lungs clear Cardiovascular: regular rate/rhythm, normal peripheral pulses, norml femoral pulses equa Peripheral Pulses: 4+ carotid (R), 4+ carotid (L) Gastrointestinal: soft, no organomegaly Back: normal inspection, normal range of motion, no vertebral tenderness Extremities: normal range of motion, pelvis stable Neurologic/Psych: no motor/sensory deficits, awake, alert, oriented x 3, normal gait, technical services representative II-XII nml as tested Skin: intact, normal color, warm/dry Core Measures ACS in differential dx? No Sepsis Present: No Sepsis Focused Exam Completed? No Progress Differential Diagnosis: biliary colic, cholecystitis, gastritis, pancreatitis Plan of Care: Orders Procedure Date/time Status Nothing by Mouth 08/28 B Active URINALYSIS 08/28 0558 Active OXYGEN SETUP (GEN) 08/28 544 Active Saline Lock 08/28 544 Active Admit to inpatient 08/28 544 Active Vital Signs 08/28 0445 Active Activity/Ambulation 08/28 544 Active Code Status 05/17 0545 Active MAGNESIUM 08/28 446 Complete LIPASE 08/28 446 Complete LDH (LACT ACID DEHYDROGENASE) 08/28 446 Complete HUMAN BETA HCG SCREEN 08/28 446 Complete COMPREHENSIVE METABOLIC PANEL 08/28 446 Complete CBC WITHOUT DIFFERENTIAL 08/28 446 Complete Current Medications Sig/Marco Start time Last Medication Dose Stop Time Status Admin Morphine Sulfate 4 MG ONCE ONE 08/28 614 UNVr (Morphine) 08/28 0616 Laboratory Tests 08/28/17 0602: Urine Color Pending, Urine Clarity Pending, Urine pH Pending, Ur Specific Pritchett Pending, Urine Protein Pending, Urine Ketones Pending, Urine Nitrite Pending, Urine Bilirubin Pending, Urine Urobilinogen Pending, Ur Leukocyte Esterase Pending, Ur Microscopic SEDIMENT EXAMINED, Urine RBC Pending, Urine Hemoglobin Pending, Urine Glucose Pending 08/28/17453: CBC w Diff NO MAN DIFF REQ, RBC 5.07, MCV 82.2, MCH 27.2, MCHC 33.1, RDW 13.7, MPV 8.5, Gran % 76.6 H, Lymphocytes % 16.8 L, Monocytes % 4.5, Eosinophils % 1.8, Basophils % 0.3, Absolute Granulocytes 10.5 H, Absolute Lymphocytes 2.3, Absolute Monocytes 0.6, Absolute Eosinophils 0.2, Absolute Basophils 0 08/28/17447: Total Beta HCG Cancelled 08/28/17446: Anion Gap 15, Estimated GFR > 60, BUN/Creatinine Ratio 18.6, Glucose 109 H, Calcium 9.8, Magnesium 2.0, Total Bilirubin 0.4, AST 21, ALT 27, Alkaline Phosphatase 92, Lactate Dehydrogenase 413, Total Protein 7.7, Albumin 4.8, Globulin 2.9, Albumin/Globulin Ratio 1.7, Lipase 1258 H, Total Beta HCG NEGATIVE Initial ED EKG: none Departure Departure Time of Disposition: 614 Disposition: STILL A PATIENT Condition: Stable Clinical Impression Primary Impression: Pancreatitis, acute Referrals: Antonietta Salinas APRN (PCP/Family) Departure Forms: Customer Survey General Discharge Information Admission Note Spoke With: Vidhi LEROY,Kerrie Documentation of Exam: Documentation of any treatments & extenuating circumstances including Concerns Regarding Discharge (functional status, medication knowledge or non-compliance, living conditions, etc.) that warrant an admission rather than observation: Nothing by mouth IV hydration IV analgesia GI consultation medication adjustment serial lab exam advance diet continuing care discharge planning
--- NOTE | 2017-08-28 08:04 | History & Physical ---
Latricia Simon 08/28/17 0803: General Information and HPI MD Statement: I have seen and personally examined PENNY JUDGE and documented this H&P. The patient is a 42 year old F who presented with a patient stated chief complaint of [ABDOMINAL PAIN]. Source of Information: patient, old records Exam Limitations: no limitations History of Present Illness: 42-year-old man with past medical history of obesity, ADHD and anxiety on Xanax as needed and Ankur, who was recently admitted and discharged from [facility] for pancreatitis and partially complex cyst in the head of the pancreas came back with chief complaint of abdominal pain and nausea. Since discharge patient went to her coordinator of online programs in [facility] and had done an MRI and colonoscopy. Colonoscopy reportedly was unremarkable and also the MRI of the abdomen showed no gallstones per patient and possibly same size of the cyst. Patient reports that she has been having on and off abdominal pain which last about couple of hours and goes away since the discharge however she had epigastric stabbing abdominal pain with nausea and feeling feverish on Friday for whole day which resolved on Friday. However last night patient again developed 7 out of 10 abdominal pain which nausea but no vomiting and came to the hospital for that reason. Patient appetite is not very good however she denies any diarrhea, dysuria, chest pain, weakness, numbness, shortness of breath, coughing. Patient denies any smoking, alcohol intake and was compliant with her diet. Patient reports using occasional Motrin for pain and occasional medical marijuana for anxiety. Patient reported that she was supposed to follow-up with GI doctor at [place] for EUS and possible drain and biopsy. Vital signs in ED were stable with mild tachycardia and no fevers and good BP. Labs notable for WBC 13.7, hg 13.8, glucose 109, creatinine within normal limits , magnesium 2.0, CRP 0.9, lipase 1258 which is lower than last time, bhcg negative, urine positive for amphetamine , opioids and cannabis, UA showed WBC 5 -10 Allergies/Medications Allergies: Coded Allergies: Penicillins (HIVES 08/28/17) coconut oil (SOB 08/28/17) Home Med list Alprazolam (Xanax) 0.25 MG TABLET 1 TAB PO DAILY NEEDED anxiety (Reported) Clonazepam (Klonopin) 1 MG TABLET 1 TAB PO AT BEDTIME PRN INSOMNIA (Reported) Lisdexamfetamine Dimesylate (Vyvanse) 60 MG CAPSULE 1 CAP PO DAILY mental health (Reported) Past History Travel History Traveled to [place] past 21 day No Medical History Neurological: NONE EENT: NONE Cardiovascular: NONE Respiratory: NONE Gastrointestinal: pancreatic cyst Hepatic: NONE Renal: NONE Musculoskeletal: NONE Psychiatric: anxiety, ADHD Endocrine: NONE Blood Disorders: NONE Cancer(s): NONE DAY CARE HOME PROVIDER/Reproductive: NONE History of MRSA: No History of VRE: No History of CDIFF: No Surgical History Surgical History: cervical circlosure x 2, post delivery Past Family/Social History Family History Relations & Conditions if any MOTHER (HTN). Age 67. FATHER (HTN/post CCKY/colon polyps). Age 67. SISTER (anxiety). Age 31. MU (Crohn's disease). , Age 54; Cause: Colon cancer. Relation not specified for: Crohn's disease gallbladder disease in father malignant neoplasm of colon in relative diagnosed when older than 50 years of age Psychosocial History Who Do You Live With? spouse, child Services at Home: None Primary Language: Nepali Living Will? no Power of Car Worker Helper/HCP? no Functional Ability ADLs Independent: dressing, eating, toileting, bathing. Ambulation: independent IADLs Independent: shopping, housework, finances, food prep, telephone, transportation , medication admin. Sexual History Past Sexual History Unobtainable at this time Review of Systems Review of Systems Constitutional: Reports: see HPI. Exam & Diagnostic Data Last 24 Hrs of Vital Signs/I&O Vital Signs Date Time Temp Pulse Resp B/P B/P Pulse O2 O2 Flow FiO2 Mean Ox Delivery Rate 08/28 0743 98.0 83 18 136/84 100 Room Air 08/28 0447 100 Room Air 08/28 0444 98.4 114 126/82 99 Room Air Intake & Output 08/28 1600 08/28 0800 08/28 0000 Intake Total 1000 Output Total Balance 1000 Intake, IV 1000 Patient 83.915 kg Weight Weight Reported by Patient Measurement Method Physical Exam General Appearance Alert, Oriented X3, Cooperative Cardiovascular Normal S1, Normal S2, mild tachycardia Lungs Clear to Auscultation, Normal Air Movement Abdomen Normal Bowel Sounds, epigastric tenderness (mild to moderate0 no rebound , negative morphy sign Neurological Normal Gait, Normal Speech, Strength at 5/5 X4 Ext Extremities No Clubbing, No Cyanosis, No Edema Assessment/Plan Assessment: 42-year-old man with past medical history of obesity, ADHD and anxiety on Xanax as needed and Vyvanse, who was recently admitted and discharged from [facility] for pancreatitis and partially complex cyst in the head of the pancreas came back with chief complaint of abdominal pain and nausea. Since discharge patient went to her coordinator of online programs in [facility] and had done an MRI and colonoscopy. Colonoscopy reportedly was unremarkable and also the MRI of the abdomen showed no gallstones per patient and possibly same size of the cyst. Patient reported that she was supposed to follow-up with GI doctor at [place] for EUS and possible drain and biopsy. Vital signs in ED were stable with mild tachycardia and no fevers and good BP. Labs notable for WBC 13.7, hg 13.8, glucose 109, creatinine within normal limits , magnesium 2.0, CRP 0.9, lipase 1258 which is lower than last time, bhcg negative, urine positive for amphetamine , opioids and cannabis, UA showed WBC 5 -10 Assessment Abdominal pain with history of pancreatic cysts /recurrent pancreatitis? Elevated WBC History of anxiety History of ADHD Plan Admit to general medicine floor and NPO for now IV hydration 200 cc/h with Ringer lactate 2 L and reassess GI consultation EKG for taking QTc IV Zofran as needed IV morphine as needed Ultrasound of abdomen to assess the size of the cyst if approved by GI Blood cultures 2 to rule out any infections GI consultation recs ni imaging, conservative management for now Patient needs EUS in near future Continue Xanax as needed for anxiety Continue Vyvanse and replace it with methylphenidate 10 mg 3 times daily DVT prophylaxis for now is mechanical only, for as needed for pain, NPO, full code As Ranked By This Provider Problem List: 1. Pancreatic cyst 2. Abdominal pain Core Measures/Misc (12/29) Acute Coronary Syndrome ACS Diagnosis: No Congestive Heart Failure Congestive Heart Failure Diagnosis No Cerebrovascular Accident CVA/TIA Diagnosis: No VTE (View Protocol) VTE Risk Factors Age>40 No Mechanical VTE Prophylaxis d/t N/A MechProphylax Ordered No VTE Pharm Prophylaxis d/t NA PharmProphylax ordered (possibl eus) Sepsis (View protocol) Sepsis Present: No Jamie Gleason 08/28/17 1522: Attending MD Review Statement Attending Statement Attending MD Statement: examined this patient, discuss w/resident/PA/TERRESTRIAL ECOLOGIST, agreed w/resident/PA/TERRESTRIAL ECOLOGIST, reviewed EMR data (avail), discussed with nursing Attending Assessment/Plan: pt seen and examined. d/w pt and GI Dr Berg the care plan. Acute pancreatitis- with h/o partial complex cyst in head of pnacresa. will give iv fluid and start diet once pain is better controlled. cont pain management. no need for any further imaging at this point of time. Pt is scheduled for EUS as an outpatient at [facility].
[2017-08-28 08:19] VITALS: BP 128/70
[2017-08-28] MEDS ORDERED: VYVANSE60 M1 PO (09:01)
[2017-08-28] MEDS ORDERED: XANAX0.25 M1 PO (09:01)
[2017-08-28 13:54] VITALS: BP 124/82
--- NOTE | 2017-08-28 15:19 | Admission Certification ---
Admission Certification Certification Statement - As attending physician, I certify that at the time of - admission, based on clinical presentation, severity of - symptoms, need for further diagnostic testing and - therapeutic interventions, and risk of adverse outcomes - without in-hospital treatment, in my clinical assessment, - this patient requires an acute hospital stay for a minimum - of two nights or longer. I have also considered psychsocial - factors such as support system, advanced age, financial - issues, cognitive issues, and failed out-patient treatments, - past re-admission history, safety of patient, and lack of - compliance as applicable. Specific rationale supporting this admission is: acute pancreatitis.
--- NOTE | 2017-08-28 18:01 | Cons- Gastroenterology ---
General Information and HPI Consulting Request Date of Consult: 08/28/17 Requested By: Vidhi LEROY,Kerrie Reason for Consult: I was called by the hospitalist service today to assess pancreatitis in a patient with known history of pancreatic cysts, not compliant with outpatient GI follow-up with me. [place] records reviewed. 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 Juilanne Omer for CLOTH CHECKER, recently admitted to [facility] 07/05/17- 07/08/17, with pressure-like epigastric pain, radiating to the mid-back, and found to have pancreatitis. *She was seen by myself in inpatient GI consultation last admission, on 07/06/17. *She has a known history of a pancreatic cyst, incidentally found in 10/2016, when she fell off the roof of a stationary car, while camping, and had a CT abdomen at [facility]. She was not compliant with a suggested EUS then. She did not have an outpt GI MD when I initially saw her. She had never had documented pancreatitis prior to her : [place] admission. She had never had an EGD or colonoscopy, at that time. Her EtOH intake was mild to moderate, approximately 3x/month. She did have a few drinks prior to her last [place] admission. Her care as been fragmented, as she goes from one catchment area to another, including walk-in clinics, [facility], [facility], & [facility]. The patient is an ex-5 pk yr cigarette smoker, D/C 2007. Her GB is intact. She denied using any NSAIDs , Sulfa, thiazides, or BCP. Her symptoms were better when leaning forward. She denied any chest pain, SOB, palpitation, jaundice, dark urine, light stool, pruritus, abdominal trauma, weight loss, change in appetite, symptoms of UTI, or URI. She intentionally lost weight 15 lbs 6 months prior to her last 07/05/17 [place] admission on a ketogenic diet, but had since regained it back. She has used marijuana for the past 8 months for her anxiety, usually every Friday. She denied any history of gallstones. She was on outpt Xanax, Klonopin & Vyvanse, which are not known to cause pancreatitis. She denied any new medications regarding the pancreatitis. She denied any FFI, GERD, odynophagia, dysphagia, early satiety, hematemesis, melena, diarrhea, constipation, obstipation, tenesmus, or BRBPR. There is a +FHx GBD (patient's father). There is a +FHx colon Ca (*MU- 50's, who also had Crohn's disease. There is a +FHx colon polyps (F). There is no FHx pancreatitis, additional GI disease or GI Ca, or inherited liver disease. 07/05/17: 6:22 p.m.- Admission labs- WBC 12.2 (71% gran/9 gran Ab), H/H 12.8/ 38.6, MCV 84.5, RDW 14.0, PLT 281, glucose 93, BUN/Cr 13/0.6, GFR > 60, Na 139, K 3.7, HCO3 26, AG 13, lactate 1.1, Ca 9.3, Mg 2.0, PO4 4.0, lipase 2325, albumin 4.1, globulin 3.2, TBil 0.8, alk phos 125, AST 33, ALT 57, LDH 476, * elevated CRP 6.3. 07/05/17: U/A- clear, yellow, 1.025, 6.0, rare RBC, 5-10 WBC, many epith, tr protein, micro- otherwise neg; neg nitrite, neg esterase. 07/05/17: U preg- neg. 07/06/17: WBC 7.8, H/H 10.8/32.2, MCV 84.7, RDW 13.7, PLT 195, BUN/Cr 8/0.6, GFR > 60, Na 140, K 3.6, HCO3 25, AG 7, TChol 133, *TG 148 07/05/17: CT ABD & PELVIS W IV CONTRAST- IMPRESSION: 1. Mild peripancreatic fat stranding nonspecific however compatible with patient's history of pancreatitis. There is hypodense cystic area within the body of the pancreas 3.4 cm, this could be evolving pseudocyst versus pancreatic neoplastic mass. Consider follow-up nonurgent MRI when patient's condition permits. 2. There is a free fluid in the dependent portion of the pelvis. 3. Pleural-based density RIGHT lower lobe 8 x 4 mm. This could be a noncalcified pleural plaque versus lung nodule. Please see below for follow-up recommendations. 4. Tiny nonobstructing RIGHT kidney stone. Tiny hypodensities in the kidneys too small to characterize. 5. Bulky uterus, there is probably LEFT uterine mass not well visible on CT scan, recommend follow-up nonemergent ultrasound. (Referring physician will be called, alerted of the above findings and recommendations. ) According to the UPDATED 2017 Fleischner Society recommendations, the advised follow-up imaging for solid nodules < 6 mm is: LOW RISK PATIENT: No routine follow-up. HIGH RISK PATIENT: Optional CT at 12 months. DICTATED BY: Easton LEROY,Ness DATE/TIME DICTATED:07/05/17202007/06/17: US ABDOMEN LIMITED (RUQ)- IMPRESSION: Normal liver & GB, without dilated IHD/EHD. CBD 4 mm. No gallstones seen. 3.2 x 3.4 x 3.3 cm complex partially solid partially cystic lesion in the body of the pancreas. 6 mm right renal stone, without hydronephrosis. DICTATED BY: Jesus LEROY,Alexa Johnson DATE/TIME DICTATED:07/06/1792807/06/17: EKG- NSR @ 94, nl axis, nl intervals, without acute ischemic changes. 07/06/17: PORTABLE CXR- Unremarkable examination. *On 07/05/17 admission, the patient had 1 grave sign by Lookout criteria ( borderline elevated LDH), & 0 grave signs by BiSAP criteria, although no CXR was done on admission to rule out pleural effusions (none seen at the lung bases on 07/05/17: CT AP with IV contrast; 07/06/17: CXR- subsequently negative). Her 07/05/17: elevated CRP 6.3 was noted, regarding prognostic purposes, although it was obtained slightly early in the admission. There was no evidence of hemoconcentration, as her H/H & BUN had dropped appropriately then, after IVF. She had essentially normal LFTs, *normal TG, & normal liver/GB/CBD on sono. Neither Klonopin nor Vyvanse are known to commonly cause pancreatitis. She is an ex-5 pk yr cigarette smoker, D/C 2007, & has a history of mild to moderate EtOH. *The 3.2 x 3.4 x 3.3 cm complex partially solid, partially cystic lesion in the body of the pancreas was noted (incidentally found on CT at [facility] in 10/2016; never worked up, per patient!). Rule out evolving pseudocyst vs. IPMN vs. cystadenoma vs. cystadenoCa/adenoCa, etc. Rule out neuroendocrine tumor. Rule out pancreatic ductal stricture. Rule out pancreas divisum (although this is a debatable entity, in terms of its cause and effect relationship, regarding pancreatitis). Rule out autoimmune pancreatitis. Doubt penetrating ulcer. Doubt biliary etiology. There was very mild nonspecific peripancreatic fat stranding around the body of the pancreas. *When initially seen by myself 07/06/17, *I advised checking serum CA 19-9 & IgG4 levels, & to consider checking full Hep A, B, & C serologies, with minimally elevated ALT. I advised eventual outpt EUS, after pancreatitis "cools down" with probable FNA. *This will probably be a more useful study than MRCP (MRI/MRCP can subsequently be used to serially monitor the pancreas, depending on the EUS findings). Avoid EtOH. As an aside, I also advised that the patient should have a baseline colonoscopy later in 2018, once her pancreatic issues were addressed, based on the +FHx early onset colon Ca (MU- 50's, who also had Crohn's disease), as well as +FHx colon polyps (F). Incidentally, the patient was advised to follow-up with the medical team & CLOTH CHECKER for the nonspecific RLL pleural based density, the tiny nonobstructing right renal stone, & the questionable left uterine mass (? need for outpt TV sono, etc.). The patient was given my office number for future reference. My office had tried to se up an outpt EUS at [facility], but the patient did not comply! *Hep A, B, & C serologies were never sent by the medical team during her last : [place] admission, but her minimally elevated ALT had normalized. 07/07/17: *nl CA 19-9: 9 (< 34), *nl IgG4: 16 (going against autoimmune pancreatitis). *Her diet was advanced, & the patient was discharged from [place] 07/08/17, on her anti-anxiety/ADHD meds, with instructions to avoid EtOH, and to follow-up with her PMD & CLOTH CHECKER for the nonspecific RLL pleural based density, the nonobstructing right renal stone, and the left uterine mass. She was also told to follow up with myself for EUS to workup her pancreatic cystic lesion. *She never followed-up with my office! *Apparently, instead of following up with me, after her 07/08/17: [place] discharge, she saw a GI M.D. at [facility], Dr. Stover, who "did an MRI and colonoscopy". These results are currently not available. She stated "the colonoscopy was unremarkable and the MRI showed no gallstones and possibly a similarly sized pancreatic cyst". *She claimed she was supposed to see a GI M.D. at [place] (Dr. Rosen) for EUS with possible FNA. *Apparently, the patient's nurse practitioner referred her to GI at [facility], even though I had done a detailed GI consult on her and sent my treatment plan to her nurse practitioner on 07/06/17. When asked by she was going to [facility] for GI treatment but then comes to [place] when she gets GI symptoms, she stated that "her nurse practitioner sent her to [facility], but that she lives closer to [place]". I also again told her that she was having fragmented care and that I could not be responsible for any adverse outcome or misdiagnosis, due to her noncompliance. Finally, she was told that my office tried to contact her numerous times for the EUS, but she was not compliant with this. She also acknowledged that despite knowing that she had a cystic mass in her pancreas since 10/2016, when asked why she had not pursued a workup for this over the past year, she told me "her nurse practitioner told her she could wait". The patient was readmitted to [place] 08/28/17, with recurrent epigastric stabbing abdominal pain, "7 out of 10", and nausea w/o vomiting, & questionable low-grade temp. She claimed she was having intermittent, fleeting abdominal pain since she was discharged 07/08/17, lasting couple of hours at a time. She stated she occasionally took Motrin for her pain and was using medical marijuana for anxiety. She denied any CP, SOB, diarrhea, jaundice, dark urine, light stools, pruritus, early satiety, overt GI bleeding, melena, sx UTI or URI, or chills. She claimed she had not resumed smoking and had stayed off EtOH. Previous triglyceride levels were stable. Her sx worsened last 08/24/17 , lasting most of the day, resolved the following day, then recurred the p.m. of 08/27/17, prompting her to come to the [place] ER 08/28/17 at 4:32 a.m. Upon arrival, BP 126/82, P 114, R 18, T 98.4, O2 sat RA 99%. She was given Zofran, MS, & IV NS in the ER. 08/28/17: 0454: Admission labs- WBC 13.7 (77% gran/11 gran Ab), H/H 13.8/41.7, MCV 82.2, RDW 13.7, PLT 338, glu 109, BUN/Cr 13/0.7, GFR > 60, Na 140, K 4.6, HCO3 25, AG 15, lipase 1258, M 2.0, Ca 9.8, alb 4.8, glob 2.9, TBil 0.4, alk phos 92, AST 21, ALT 27, LDH 413, serum HCG neg, *CRP 0.9. 08/28/17: U/A- hazy, yellow, 1.010, 7.0, 1-3 RBC, 5-10 WBC, few bact, mod epith, micro- otherwise neg; neg nitirite, neg esterase. 08/28/17: U tox- amphet > 1450 (ADHD meds), cannabis > 80 08/28/17: BC x 2- pending. 08/28/17: EKG- NSR @ 88, nl axis, nl intervals, flat T in L. No other imaging studies obtained this admission (she has had numerous imaging studies here previously, & later, at [facility]). Allergies/Medications Allergies: Coded Allergies: Penicillins (HIVES 08/28/17) coconut oil (SOB 08/28/17) Home Med List: Alprazolam (Xanax) 0.25 MG TABLET 1 TAB PO DAILY NEEDED anxiety (Reported) Clonazepam (Klonopin) 1 MG TABLET 1 TAB PO AT BEDTIME PRN INSOMNIA (Reported) Lisdexamfetamine Dimesylate (Vyvanse) 60 MG CAPSULE 1 CAP PO DAILY mental health (Reported) Current Medications: Current Medications Sig/Marco Start time Last Medication Dose Route Stop Time Status Admin Alprazolam 0.25 MG DAILY NEEDED PRN 08/28 0915 AC PO 09/04 0914 Lactated Ringer's 1,000 ML .Q10H 08/29 1900 AC IV Lactated Ringer's 1,000 ML Q5H 08/28 0815 AC 08/28 IV 08/28 1814 1321 Methylphenidate HCl 10 MG 0900,1200,1600 08/28 1400 DC PO Methylphenidate HCl 10 MG 0900,1200,1600 08/28 1200 AC PO Morphine Sulfate 2 MG Q4P PRN 08/28 0815 AC 08/28 IV 1602 Morphine Sulfate 0 .STK-MED ONE 08/28 0627 DC .ROUTE Morphine Sulfate 4 MG ONCE ONE 08/28 0615 DC 08/28 IV 08/28 0616 0623 Morphine Sulfate 0 .STK-MED ONE 08/28 0508 DC .ROUTE Morphine Sulfate 4 MG ONCE ONE 08/28 0500 DC 08/28 IV 08/28 0501 0500 Ondansetron HCl 4 MG Q6P PRN 08/28 0915 AC IV Ondansetron HCl 0 .STK-MED ONE 08/28 0508 DC .ROUTE Ondansetron HCl 4 MG ONCE ONE 08/28 0500 DC 08/28 IV 08/28 0501 0500 Sodium Chloride 1,000 ML BOLUS ONE 08/28 0500 DC 08/28 IV 08/28 0559 0500 Past History Travel History Traveled to [place] past 21 day No Medical History Blood Transfusion Hx: No Neurological: NONE EENT: NONE Cardiovascular: NONE Respiratory: NONE Gastrointestinal: pancreatic cyst Hepatic: NONE Renal: NONE Musculoskeletal: NONE Psychiatric: anxiety, ADHD Endocrine: NONE Blood Disorders: NONE Cancer(s): NONE CLOTH CHECKER/Reproductive: NONE Surgical History Surgical History: cervical circlosure x 2, post delivery Family History Relations & Conditions If Any: MOTHER (HTN). Age 67. FATHER (HTN/post CCKY/colon polyps). Age 67. SISTER (anxiety). Age 31. MU (Crohn's disease). , Age 54; Cause: Colon cancer. Relation not specified for: Crohn's disease gallbladder disease in father malignant neoplasm of colon in relative diagnosed when older than 50 years of age Psychosocial History Where Do You Live? Home Who Do You Live With? spouse, child Services at Home: None Primary Language: Paraguayan Smoking Status: Former Smoker ETOH Use: occasional use Illicit Drug Use: marijuana Living Will? no Power of Manager Regional Sales/HCP? no Other Social History: . 2 sons & 1 dtr- [employer]. Ex-5 pk yr cigarette smoker. Mild to mod EtOH, 2- 3x/month. + Marijuana for anxiety, 1x/week. No other illicit drugs. No IVDA. 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 Functional Ability ADLs Independent: dressing, eating, toileting, bathing. Ambulation: independent IADLs Independent: shopping, housework, finances, food prep, telephone, transportation , medication admin. 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 Constitutional: Reports: no symptoms. EENTM: Reports: no symptoms. Cardiovascular: Reports: no symptoms. Respiratory: Reports: no symptoms. GI: Reports: abdominal pain, bloating, mild nausea. Genitourinary: Reports: no symptoms. Musculoskeletal: Reports: no symptoms. Skin: Reports: no symptoms. Neurological/Psychological: Reports: anxiety, ADHD. Hematologic/Endocrine: Reports: no symptoms. Review of Systems All Other Systems: Reviewed and Negative Exam & Diagnostic Data Vital Signs and I&O Vital Signs Date Time Temp Pulse Resp B/P B/P Pulse O2 O2 Flow FiO2 Mean Ox Delivery Rate 08/28 1354 98.9 91 20 124/82 100 Room Air 08/28 0819 98.4 105 18 128/70 100 Room Air 08/28 0743 98.0 83 18 136/84 100 Room Air 08/28 0447 100 Room Air 08/28 0444 98.4 114 126/82 99 Room Air Intake & Output 08/28 1600 08/28 0400 08/27 1600 08/27 0400 08/26 1600 08/26 0400 Intake Total 2440 Output Total Balance 2440 Intake, IV 2200 Intake, Oral 240 Patient 185 lb Weight Weight Reported by Patient Measurement Method Physical Exam: Well-developed, well-nourished,slightly obese, pleasant female, in no apparent distress. Nontoxic appearing.Sclera anicteric. Conjunctiva pink. Oropharynx clear. No oral thrush. No aphthous ulcers. There is no adenopathy, thyromegaly, or JVD. No peripheral stigmata of inflammatory bowel disease or chronic liver disease on exam. No spiders on the anterior chest wall. Breast & pelvic exams: API. No CVA tenderness. No spine tenderness. Lungs: clear to A&P. No wheezing, rales, or rhonchi. Heart exam: regular rate rhythm S1 and S2 without any murmur. Abdominal exam: normal bowel sounds, slightly obese, minimally distended belly, epigastric tenderness, without guarding or rebound. No mass. No organomegaly. Negative Fountain sign. No fluid shift. No pulsatile mass. No epigastric bruit. Digital rectal exam: deferred by patient ("done at recent outpt baseline colonoscopy with Dr. Stover at [facility]"). Extremities: without C, C, or E. No palpable cords. No acute arthropathy. No rashes. No palmar erythema. No Dupuytren's contractures. Distal pulses 2+ bilaterally. DTRs 2+ bilaterally. Alert and oriented x 3. Motor 5/5 B/L. Right handed. CN II-XII intact. No tremor. No asterixis. Results Pertinent Lab Results: Laboratory Tests 08/28 08/28 0602 0454 Hematology CBC w Diff NO MAN DIFF REQ WBC (4.8 - 10.8 /CUMM) 13.7 H RBC (4.20 - 5.40 /CUMM) 5.07 Hgb (12.0 - 16.0 G/DL) 13.8 Hct (37 - 47 %) 41.7 MCV (81.0 - 99.0 FL) 82.2 MCH (27.0 - 31.0 PG) 27.2 MCHC (33.0 - 37.0 G/DL) 33.1 RDW (11.5 - 14.5 %) 13.7 Plt Count (130 - 400 /CUMM) 338 MPV (7.4 - 10.4 FL) 8.5 Gran % (42.2 - 75.2 %) 76.6 H Lymphocytes % (20.5 - 51.1 %) 16.8 L Monocytes % (1.7 - 9.3 %) 4.5 Eosinophils % (0 - 5 %) 1.8 Basophils % (0.0 - 2.0 %) 0.3 Absolute Granulocytes (1.4 - 6.5 /CUMM) 10.5 H Absolute Lymphocytes (1.2 - 3.4 /CUMM) 2.3 Absolute Monocytes (0.10 - 0.60 /CUMM) 0.6 Absolute Eosinophils (0.0 - 0.7 /CUMM) 0.2 Absolute Basophils (0.0 - 0.2 /CUMM) 0 Toxicology Urine Opiates Screen (>2000 NG/ML) 1779.00 Methadone Screen (>300 NG/ML) 51 Barbiturate Screen (>200 NG/ML) < 60 Ur Phencyclidine Scrn (>25 NG/ML) < 6.00 Amphetamines Screen (>1000 NG/ML) > 1450 H U Benzodiazepines Scrn (>200 NG/ML) < 85 Urine Cocaine Screen (>300 NG/ML) < 50 Urine Cannabis Screen (>50 NG/ML) > 80.00 H Urines Urinalysis LIGHT H Urine Color (YEL,AMB,STR) YEL Urine Clarity (CLEAR) HAZY H Urine pH (5.0 - 8.0) 7.0 Ur Specific Leonard (1.001 - 1.035) 1.010 Urine Protein (NEG,<30 MG/DL) NEG Urine Ketones (NEG) NEG Urine Nitrite (NEG) NEG Urine Bilirubin (NEG) NEG Urine Urobilinogen (0.1 - 1.0 EU/dl) 0.2 Ur Leukocyte Esterase (NEG) SMALL H Ur Microscopic SEDIMENT EXAMINED Urine RBC (0 - 5 /HPF) 1-3 Urine WBC (0 - 2 /HPF) 5-10 H Ur Epithelial Cells (NONE,FEW) MOD H Urine Bacteria (NEG/NONE) FEW H Urine Mucus (FEW,NONE) RARE Urine Hemoglobin (NEG) NEG Urine Glucose (N MG/DL) NEG 08/28 08/28 3428 0447 Chemistry Sodium (137 - 145 mmol/L) 140 Potassium (3.5 - 5.1 mmol/L) 4.6 Chloride (98 - 107 mmol/L) 101 Carbon Dioxide (22 - 30 mmol/L) 25 Anion Gap (5 - 16) 15 BUN (7 - 17 mg/dL) 13 Creatinine (0.5 - 1.0 mg/dL) 0.7 Estimated GFR (>60 ml/min) > 60 BUN/Creatinine Ratio (7 - 25 %) 18.6 Glucose (65 - 99 mg/dL) 109 H Calcium (8.4 - 10.2 mg/dL) 9.8 Magnesium (1.6 - 2.3 mg/dL) 2.0 Total Bilirubin (0.2 - 1.3 mg/dL) 0.4 AST (14 - 36 U/L) 21 ALT (9 - 52 U/L) 27 Alkaline Phosphatase (<127 U/L) 92 Lactate Dehydrogenase (313 - 618 U/L) 413 C-Reactive Prot, Quant (<1.0 mg/dL) 0.9 Total Protein (6.3 - 8.2 g/dL) 7.7 Albumin (3.5 - 5.0 g/dL) 4.8 Globulin (1.9 - 4.2 gm/dL) 2.9 Albumin/Globulin Ratio (1.1 - 2.2 %) 1.7 Lipase (23 - 300 U/L) 1258 H Total Beta HCG (NEGATIVE) Cancelled NEGATIVE Imaging/Other Studies: 07/05/17: CT ABD & PELVIS W IV CONTRAST- IMPRESSION: 1. Mild peripancreatic fat stranding nonspecific however compatible with patient's history of pancreatitis. There is hypodense cystic area within the body of the pancreas 3.4 cm, this could be evolving pseudocyst versus pancreatic neoplastic mass. Consider follow-up nonurgent MRI when patient's condition permits. 2. There is a free fluid in the dependent portion of the pelvis. 3. Pleural-based density RIGHT lower lobe 8 x 4 mm. This could be a noncalcified pleural plaque versus lung nodule. Please see below for follow-up recommendations. 4. Tiny nonobstructing RIGHT kidney stone. Tiny hypodensities in the kidneys too small to characterize. 5. Bulky uterus, there is probably LEFT uterine mass not well visible on CT scan, recommend follow-up nonemergent ultrasound. (Referring physician will be called, alerted of the above findings and recommendations. ) According to the UPDATED 2017 Fleischner Society recommendations, the advised follow-up imaging for solid nodules < 6 mm is: LOW RISK PATIENT: No routine follow-up. HIGH RISK PATIENT: Optional CT at 12 months. DICTATED BY: Ness Mccormack MD DATE/TIME DICTATED:07/05/17202007/06/17: US ABDOMEN LIMITED (RUQ)- IMPRESSION: Normal liver & GB, without dilated IHD/EHD. CBD 4 mm. No gallstones seen. 3.2 x 3.4 x 3.3 cm complex partially solid partially cystic lesion in the body of the pancreas. 6 mm right renal stone, without hydronephrosis. DICTATED BY: Alexa Lee MD DATE/TIME DICTATED:07/06/1792807/06/17: EKG- NSR @ 94, nl axis, nl intervals, without acute ischemic changes. 07/06/17: PORTABLE CXR- Unremarkable examination. 08/28/17: EKG- NSR @ 88, nl axis, nl intervals, flat T in L. 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 Julianne Omer for CLOTH CHECKER, recently admitted to [facility] 07/05/17- 07/08/17, with pressure-like epigastric pain, radiating to the mid-back, and found to have pancreatitis. *She was seen by myself in inpatient GI consultation last admission, on 07/06/17. *She has a known history of a pancreatic cyst, incidentally found in 10/2016, when she fell off the roof of a stationary car, while camping, and had a CT abdomen at [facility]. She was not compliant with a suggested EUS then. She did not have an outpt GI MD when I initially saw her. She had never had documented pancreatitis prior to her : [place] admission. She had never had an EGD or colonoscopy, at that time. Her EtOH intake was mild to moderate, approximately 3x/month. She did have a few drinks prior to her last [place] admission. Her care as been fragmented, as she goes from one catchment area to another, including walk-in clinics, [facility], [facility], & [facility]. The patient is an ex-5 pk yr cigarette smoker, D/C 2007. Her GB is intact. She denied using any NSAIDs , Sulfa, thiazides, or BCP. Her symptoms were better when leaning forward. She denied any chest pain, SOB, palpitation, jaundice, dark urine, light stool, pruritus, abdominal trauma, weight loss, change in appetite, symptoms of UTI, or URI. She intentionally lost weight 15 lbs 6 months prior to her last 07/05/17 [place] admission on a ketogenic diet, but had since regained it back. She has used marijuana for the past 8 months for her anxiety, usually every Friday. She denied any history of gallstones. She was on outpt Xanax, Klonopin & Vyvanse, which are not known to cause pancreatitis. She denied any new medications regarding the pancreatitis. She denied any FFI, GERD, odynophagia, dysphagia, early satiety, hematemesis, melena, diarrhea, constipation, obstipation, tenesmus, or BRBPR. There is a +FHx GBD (patient's father). There is a +FHx colon Ca (*MU- 50's, who also had Crohn's disease. There is a +FHx colon polyps (F). There is no FHx pancreatitis, additional GI disease or GI Ca, or inherited liver disease. 07/05/17: 6:22 p.m.- Admission labs- WBC 12.2 (71% gran/9 gran Ab), H/H 12.8/ 38.6, MCV 84.5, RDW 14.0, PLT 281, glucose 93, BUN/Cr 13/0.6, GFR > 60, Na 139, K 3.7, HCO3 26, AG 13, lactate 1.1, Ca 9.3, Mg 2.0, PO4 4.0, lipase 2325, albumin 4.1, globulin 3.2, TBil 0.8, alk phos 125, AST 33, ALT 57, LDH 476, * elevated CRP 6.3. 07/05/17: U/A- clear, yellow, 1.025, 6.0, rare RBC, 5-10 WBC, many epith, tr protein, micro- otherwise neg; neg nitrite, neg esterase. 07/05/17: U preg- neg. 07/06/17: WBC 7.8, H/H 10.8/32.2, MCV 84.7, RDW 13.7, PLT 195, BUN/Cr 8/0.6, GFR > 60, Na 140, K 3.6, HCO3 25, AG 7, TChol 133, *TG 148 07/05/17: CT ABD & PELVIS W IV CONTRAST- IMPRESSION: 1. Mild peripancreatic fat stranding nonspecific however compatible with patient's history of pancreatitis. There is hypodense cystic area within the body of the pancreas 3.4 cm, this could be evolving pseudocyst versus pancreatic neoplastic mass. Consider follow-up nonurgent MRI when patient's condition permits. 2. There is a free fluid in the dependent portion of the pelvis. 3. Pleural-based density RIGHT lower lobe 8 x 4 mm. This could be a noncalcified pleural plaque versus lung nodule. Please see below for follow-up recommendations. 4. Tiny nonobstructing RIGHT kidney stone. Tiny hypodensities in the kidneys too small to characterize. 5. Bulky uterus, there is probably LEFT uterine mass not well visible on CT scan, recommend follow-up nonemergent ultrasound. (Referring physician will be called, alerted of the above findings and recommendations. ) According to the UPDATED 2017 Fleischner Society recommendations, the advised follow-up imaging for solid nodules < 6 mm is: LOW RISK PATIENT: No routine follow-up. HIGH RISK PATIENT: Optional CT at 12 months. DICTATED BY: Easton LEROY,Ness DATE/TIME DICTATED:07/05/17202007/06/17: US ABDOMEN LIMITED (RUQ)- IMPRESSION: Normal liver & GB, without dilated IHD/EHD. CBD 4 mm. No gallstones seen. 3.2 x 3.4 x 3.3 cm complex partially solid partially cystic lesion in the body of the pancreas. 6 mm right renal stone, without hydronephrosis. DICTATED BY: Jesus LEROY,Alexa Johnson DATE/TIME DICTATED:07/06/1792807/06/17: EKG- NSR @ 94, nl axis, nl intervals, without acute ischemic changes. 07/06/17: PORTABLE CXR- Unremarkable examination. *On 07/05/17 admission, the patient had 1 grave sign by Lookout criteria ( borderline elevated LDH), & 0 grave signs by BiSAP criteria, although no CXR was done on admission to rule out pleural effusions (none seen at the lung bases on 07/05/17: CT AP with IV contrast; 07/06/17: CXR- subsequently negative). Her 07/05/17: elevated CRP 6.3 was noted, regarding prognostic purposes, although it was obtained slightly early in the admission. There was no evidence of hemoconcentration, as her H/H & BUN had dropped appropriately then, after IVF. She had essentially normal LFTs, *normal TG, & normal liver/GB/CBD on sono. Neither Klonopin nor Vyvanse are known to commonly cause pancreatitis. She is an ex-5 pk yr cigarette smoker, D/C 2007, & has a history of mild to moderate EtOH. *The 3.2 x 3.4 x 3.3 cm complex partially solid, partially cystic lesion in the body of the pancreas was noted (incidentally found on CT at [facility] in 10/2016; never worked up, per patient!). Rule out evolving pseudocyst vs. IPMN vs. cystadenoma vs. cystadenoCa/adenoCa, etc. Rule out neuroendocrine tumor. Rule out pancreatic ductal stricture. Rule out pancreas divisum (although this is a debatable entity, in terms of its cause and effect relationship, regarding pancreatitis). Rule out autoimmune pancreatitis. Doubt penetrating ulcer. Doubt biliary etiology. There was very mild nonspecific peripancreatic fat stranding around the body of the pancreas. *When initially seen by myself 07/06/17, *I advised checking serum CA 19-9 & IgG4 levels, & to consider checking full Hep A, B, & C serologies, with minimally elevated ALT. I advised eventual outpt EUS, after pancreatitis "cools down" with probable FNA. *This will probably be a more useful study than MRCP (MRI/MRCP can subsequently be used to serially monitor the pancreas, depending on the EUS findings). Avoid EtOH. As an aside, I also advised that the patient should have a baseline colonoscopy later in 2018, once her pancreatic issues were addressed, based on the +FHx early onset colon Ca (MU- 50's, who also had Crohn's disease), as well as +FHx colon polyps (F). Incidentally, the patient was advised to follow-up with the medical team & CLOTH CHECKER for the nonspecific RLL pleural based density, the tiny nonobstructing right renal stone, & the questionable left uterine mass (? need for outpt TV sono, etc.). The patient was given my office number for future reference. My office had tried to se up an outpt EUS at [facility], but the patient did not comply! *Hep A, B, & C serologies were never sent by the medical team during her last : [place] admission, but her minimally elevated ALT had normalized. 07/07/17: *nl CA 19-9: 9 (< 34), *nl IgG4: 16 (going against autoimmune pancreatitis). *Her diet was advanced, & the patient was discharged from [place] 07/08/17, on her anti-anxiety/ADHD meds, with instructions to avoid EtOH, and to follow-up with her PMD & CLOTH CHECKER for the nonspecific RLL pleural based density, the nonobstructing right renal stone, and the left uterine mass. She was also told to follow up with myself for EUS to workup her pancreatic cystic lesion. *She never followed-up with my office! *Apparently, instead of following up with me, after her 07/08/17: [place] discharge, she saw a GI M.D. at [facility], Dr. Stover, who "did an MRI and colonoscopy". These results are currently not available. She stated "the colonoscopy was unremarkable and the MRI showed no gallstones and possibly a similarly sized pancreatic cyst". *She claimed she was supposed to see a GI M.D. at [place] (Dr. Rosen) for EUS with possible FNA. *Apparently, the patient's nurse practitioner referred her to GI at [facility], even though I had done a detailed GI consult on her and sent my treatment plan to her nurse practitioner on 07/06/17. When asked by she was going to [facility] for GI treatment but then comes to [place] when she gets GI symptoms, she stated that "her nurse practitioner sent her to [facility], but that she lives closer to [place]". I also again told her that she was having fragmented care and that I could not be responsible for any adverse outcome or misdiagnosis, due to her noncompliance. Finally, she was told that my office tried to contact her numerous times for the EUS, but she was not compliant with this. She also acknowledged that despite knowing that she had a cystic mass in her pancreas since 10/2016, when asked why she had not pursued a workup for this over the past year, she told me "her nurse practitioner told her she could wait". The patient was readmitted to [place] 08/28/17, with recurrent epigastric stabbing abdominal pain, "7 out of 10", and nausea w/o vomiting, & questionable low-grade temp. She claimed she was having intermittent, fleeting abdominal pain since she was discharged 07/08/17, lasting couple of hours at a time. She stated she occasionally took Motrin for her pain and was using medical marijuana for anxiety. She denied any CP, SOB, diarrhea, jaundice, dark urine, light stools, pruritus, early satiety, overt GI bleeding, melena, sx UTI or URI, or chills. She claimed she had not resumed smoking and had stayed off EtOH. Previous triglyceride levels were stable. Her sx worsened last 08/24/17 , lasting most of the day, resolved the following day, then recurred the p.m. of 08/27/17, prompting her to come to the [place] ER 08/28/17 at 4:32 a.m. Upon arrival, BP 126/82, P 114, R 18, T 98.4, O2 sat RA 99%. She was given Zofran, MS, & IV NS in the ER. 08/28/17: 0454: Admission labs- WBC 13.7 (77% gran/11 gran Ab), H/H 13.8/41.7, MCV 82.2, RDW 13.7, PLT 338, glu 109, BUN/Cr 13/0.7, GFR > 60, Na 140, K 4.6, HCO3 25, AG 15, lipase 1258, M 2.0, Ca 9.8, alb 4.8, glob 2.9, TBil 0.4, alk phos 92, AST 21, ALT 27, LDH 413, serum HCG neg, *CRP 0.9. 08/28/17: U/A- hazy, yellow, 1.010, 7.0, 1-3 RBC, 5-10 WBC, few bact, mod epith, micro- otherwise neg; neg nitirite, neg esterase. 08/28/17: U tox- amphet > 1450 (ADHD meds), cannabis > 80 08/28/17: BC x 2- pending. 08/28/17: EKG- NSR @ 88, nl axis, nl intervals, flat T in L. No other imaging studies obtained this admission (she has had numerous imaging studies here previously, & later, at [facility]). *Upon readmission to [place] for pancreatitis 08/28/17, she had no Grave prognostic signs by Lookout criteria & 1 Grave prognostic sign by BiSAP criteria, namely + SIRS (initally tachycardic with mildly elevated WBC, but no CXR repeated to r/o pleural effusions). Her CRP was normal, which was reassuring, in terms of prognostic markers. Her 07/07/17: nl CA 19:9 & nl IgG4 levels were noted. The patient is aware of her fragmented care & her noncompliance with follow-up. Apparently, her nurse practitioner plugged her in with [facility] (GI- Dr. Stover), and the patient is in the process of seeing Dr. Rosen at [facility] for the definitive EUS, which I recommended months ago. Apparently she had her baseline colonoscopy [based on the +FHx early onset colon Ca (MU- 50's, who also had Crohn's disease), as well as +FHx colon polyps (F)], and another MRI at [facility] recntly, but I felt that the latter test was superfluous, as she still needed the definitive EUS, anyway. *SUGGEST: Continue IV Ringers Lactate at 150 cc/hr for now. Zofran as needed. Analgesics as needed. Avoid NSAIDs. Strict I/O's. Continue anxiolytics & ADHD meds. Trial of clears po in A.M, as tolerated. The patient is aware of the consequences of her fragmented care. She was also told that in the future, as her PCP and GI M.D. are in the [facility] area, that it makes no sense for her to be readmitted to [place], unless she switches to [place] physicians for her total inpt/outpt care. *Watch for hemoconcentration (i.e.- rising H/H or BUN, despite IVF), which would be a poor prognostic sign. Follow-up lytes & LFTs. * Eventual outpt EUS, after pancreatitis "cools down" with probable FNA, with Dr. Rosen. Further inpatient GI follow-up as needed. At the moment, I do not feel the patient needs yet another CT, which would just be unnecessary radiation , unless there is high clinical suspicion of necrotizing pancreatitis, which is probably unlikely. Incidentally, the patient was again advised to follow-up with the medical team & CLOTH CHECKER for the nonspecific RLL pleural based density, the tiny nonobstructing right renal stone, & the questionable left uterine mass (? need for outpt TV sono, etc.). The patient will follow up with her outpatient GI M.D. at [facility] (Dr. Montana) and with Dr. Rosen at [facility] for EUS. Again, she was told that it makes no sense to keep being readmitted to [place], when all of her care is elsewhere. She should have all of her care in one place, either here or at [facility]. The above was discussed with Dr. Gleason and the medical house staff. Problem List: 1. Pancreatitis 2. Pancreatic cyst 3. Abdominal pain 4. Family history of gallbladder disease in father 5. Family history of malignant neoplasm of colon in relative diagnosed when older than 50 years of age 6. Family history of Crohn's disease Copies To: Vidhi LEROY,Lilia Gleason MD,Jamie Omer MD,Julianne; Antonietta Salinas APRN Consult Acknowledgment - Thank you for your consult request.
[2017-08-28 22:43] VITALS: BP 106/70
[2017-08-29 06:54] VITALS: BP 132/88
--- NOTE | 2017-08-29 08:01 | PN- Housestaff ---
Scotty LEROY,Amie 08/29/17 0801: Subjective Follow-up For: pancreatitis Subjective: Saw pt at bedside this AM. No acute overnight events or complaints. She states that she wants to try eating at this time. Review of Systems Constitutional: Denies: chills, fever, malaise, weakness. EENTM: Reports: no symptoms. Cardiovascular: Denies: chest pain, palpitations. Respiratory: Reports: no symptoms, see HPI, cough, hemoptysis, orthopnea, short of breath, sputum production, stridor, wheezing. Gastrointestinal: Reports: abdominal pain, distention, nausea. Denies: diarrhea, vomiting. Genitourinary: Reports: no symptoms. Musculoskeletal: Reports: no symptoms. Objective Last 24 Hrs of Vital Signs/I&O Vital Signs Date Time Temp Pulse Resp B/P B/P Pulse O2 O2 Flow FiO2 Mean Ox Delivery Rate 08/29 0654 99.5 124 20 132/88 96 08/28 2243 99.0 116 20 106/70 98 Room Air 08/28 1354 98.9 91 20 124/82 100 Room Air Intake & Output 08/29 1600 08/29 0800 08/29 0000 Intake Total 285 860 Output Total Balance 285 860 Intake, IV 285 800 Intake, Oral 60 Physical Exam General Appearance: Alert, Oriented X3, Cooperative Skin: No Significant Lesion HEENT: Atraumatic, PERRLA, EOMI Neck: Supple Cardiovascular: Regular Rate, Normal S1, Normal S2 Lungs: Normal Air Movement Abdomen: Some epigastric tenderness to palpation. Additionally pt has tenderness in R. flank. No murphys. +BS. Neurological: Normal Speech, Strength at 5/5 X4 Ext, Normal Tone Current Medications: Current Medications Sig/Marco Start time Last Medication Dose Route Stop Time Status Admin Acetaminophen 650 MG TID PRN 08/29 0945 AC 08/29 PO 0950 Alprazolam 0.25 MG DAILY NEEDED PRN 08/28 0915 AC 08/28 PO 09/04 0914 2219 Hydromorphone HCl 0.2 MG Q4P PRN 08/29 0945 AC IV Lactated Ringer's 1,000 ML .Q10H 08/29 2045 DC 08/29 IV 0425 Lactated Ringer's 1,000 ML .Q10H 08/29 1900 DC IV Lactated Ringer's 1,000 ML Q5H 08/28 0815 DC 08/28 IV 08/28 1814 1321 Methylphenidate HCl 10 MG 0900,1200,1600 08/28 1400 DC PO Methylphenidate HCl 10 MG 0900,1200,1600 08/28 1200 AC PO Morphine Sulfate 2 MG Q4P PRN 08/28 0815 DC 08/29 IV 0424 Ondansetron HCl 4 MG Q6P PRN 08/28 0915 AC 08/29 IV 0424 Last 24 Hrs of Lab/Chris Results Last 24 Hrs of Labs/Mics: Laboratory Tests 08/29/17 0758: Anion Gap 12, Estimated GFR > 60, BUN/Creatinine Ratio 11.7, Total Bilirubin 1.3 , Direct Bilirubin 0.2, AST 14, ALT 22, Alkaline Phosphatase 85, C-Reactive Prot , Quant > 9.0 H, C-React Prot High Sens > 15.0 H, Total Protein 6.1 L, Albumin 3.7, CBC w Diff NO MAN DIFF REQ, RBC 4.37, MCV 82.8, MCH 27.6, MCHC 33.3 , RDW 13.3, MPV 9.1, Gran % 83.2 H, Lymphocytes % 10.2 L, Monocytes % 5.6, Eosinophils % 0.9, Basophils % 0.1, Absolute Granulocytes 12.8 H, Absolute Lymphocytes 1.6, Absolute Monocytes 0.9 H, Absolute Eosinophils 0.1, Absolute Basophils 0 Assessment/Plan Assessment: This is a 42-year-old female with past medical history of obesity, ADHD and anxiety on Xanax as needed and Vyvanse, who was recently admitted and discharged from [facility] for pancreatitis and partially complex cyst in the head of the pancreas who comes back with chief complaint of abdominal pain and nausea. Work up here shows similar cyst compared to previous. [facility] and is supposed to go to [place] for EUS and possible drainage. PLAN Pancreatitis with cyst: If toelrates po diet then can go home today. * D/C IVF * Appreciate GI consult * Zofran * Dilaudid PRN * Blood cultures 2 negative * Patient needs EUS in near future * Start clear liquids Anxiety and ADHD: * Continue Xanax as needed for anxiety * Continue Vyvanse and replace it with methylphenidate 10 mg 3 times daily DVT prophylaxis for now is mechanical only, for as needed for pain, NPO, full code Problem List: 1. Pancreatitis, acute Pain Ratin Pain Location: none Pain Goal: Remain pain free Pain Plan: none Tomorrow's Labs & Rationales: none DVT/Prophylaxis: mechanical, pharmacological Jamie Gleason 08/29/17 1633: Attending MD Review Statement Attending Statement Attending MD Statement: examined this patient, discuss w/resident/PA/PAPIER MACHE' MOLDER, agreed w/resident/PA/PAPIER MACHE' MOLDER, reviewed EMR data (avail), discussed with nursing, discussed with case mgmt Attending Assessment/Plan: Pt seen and examined at bedside. Acute pancreatitis- we will see how she tolerated the diet and if she is tolerating the diet plan would be to dc her home with EUS as outpatient at [facility]. d/w pt the care plan
--- NOTE | 2017-08-29 08:17 | Patient Discharge Instructions ---
Discharge Instructions General Discharge Information You were seen/treated for: PANCREATITIS Watch for these problems: 1. Fever 2. Abdominal pain 3. Nausea 4. Vomiting Special Instructions: 1. Please follow up with Dr. Berg for further care 2. Please follow up with your PCP Diet Recommended Diet: Low Fat Activity Activity Self Limited: No Acute Coronary Syndrome Inclusion Criteria At DC or during hospital stay patient has or had the following: ACS DIAGNOSIS No Discharge Core Measures Meds if any: Prescribed or Continued at Discharge Meds if any: NOT Prescribed or Continued at Discharge Congestive Heart Failure Inclusion Criteria At DC or during hospital stay patient has or had the following: CHF DIAGNOSIS No Discharge Core Measures Meds if any: Prescribed or Continued at Discharge Meds if any: NOT Prescribed or Continued at Discharge Cerebrovascular accident Inclusion Criteria At DC or during hospital stay patient has or had the following: CVA/TIA Diagnosis No Discharge Core Measures Meds if any: Prescribed or Continued at Discharge Meds if any: NOT Prescribed or Continued at Discharge Venous thromboembolism Inclusion Criteria VTE Diagnosis No VTE Type NONE VTE Confirmed by (Test) NONE Discharge Core Measures - Per Current guidelines, there needs to be overlap - treatment for the first 5 days of Warfarin therapy. - If discharged on Warfarin prior to 5 days of - overlap therapy, the patient will need to be - assessed for post discharge needs including - *Post discharge parental anticoagulation - *Warfarin and/or parental anticoagulation education - *Follow up date to check INR post discharge At least 5 days overlap therapy as Inpatient No Meds if any: Prescribed or Continued at Discharge Note: Overlap Therapy is Warfarin and Anticoagulant Meds if any: NOT Prescribed or Continued at Discharge
[2017-08-29 09:02] LABS: ABSOLUTE BASOPHIL COUNT 0 /CUMM (0.0-0.2); ABSOLUTE EOSINOPHIL COUNT 0.1 /CUMM (0.0-0.7); ABSOLUTE GRANULOCYTE CT 12.8 /CUMM (1.4-6.5); ABSOLUTE MONOCYTE COUNT 0.9 /CUMM (0.10-0.60); BASOPHIL % 0.1 % (0.0-2.0); EOSINOPHIL % 0.9 % (0-5); WHITE BLOOD CELL COUNT 15.4 /CUMM (4.8-10.8)
[2017-08-29 09:22] LABS: ABSOLUTE LYMPH COUNT 1.6 /CUMM (1.2-3.4); MEAN CORPUSCULAR HGB 27.6 PG (27.0-31.0); MEAN CORPUSCULAR HGB CONC 33.3 G/DL (33.0-37.0); MEAN CORPUSCULAR VOLUME 82.8 FL (81.0-99.0); MEAN PLATELET VOLUME 9.1 FL (7.4-10.4); PLATELET COUNT 244 /CUMM (130-400); RBC DISTRIBUTION WIDTH 13.3 % (11.5-14.5); RED BLOOD CELL CT 4.37 /CUMM (4.20-5.40)
[2017-08-29 09:25] LABS: HEMATOCRIT 36.2 % (37-47)
[2017-08-29 10:03] LABS: GRANULOCYTE % 83.2 % (42.2-75.2)
--- NOTE | 2017-08-29 14:17 | Discharge Summary ---
Visit Information Visit Dates Admission Date: 08/28/17 Discharge Date: 08/30/17 Hospital Course Course Attending Physician: Rosibel LEROY,Jamie Baptiste Primary Care Physician: Antonietta Salinas APRN Consulting Request: Consulting Specialty: Gastroenterology Hospital Course: This is a 42-year-old female with past medical history of obesity, ADHD and anxiety on Xanax as needed and Vyvanse, who was recently admitted and discharged from [facility] for pancreatitis and known partially complex cyst in the head of the pancreas who comes back with chief complaint of abdominal pain and nausea. Work up during this admission shows similar cyst compared to previous and no change. She has had most of her [facility] ([facility] and [facility]) and is supposed to go to [facility] for EUS and possible drainage. In hospital GI was consulted and they stated no acute intervention at this time. Pt was counseled to follow up with a single provider to avoid fragmentation of care ([place] vs [facility] vs [facility]). Pt's diet was advanced as tolerated, pain was managed and she was told to follow up at [facility] for possible EUS w/ FNA. Initial vital signs in ED were stable with mild tachycardia and no fevers and good BP. Labs notable for WBC 13.7, hg 13.8, glucose 109, creatinine within normal limits , magnesium 2.0, CRP 0.9, lipase 1258 which is lower than last time, bhcg negative, urine positive for amphetamine , opioids and cannabis, UA showed WBC 5 -10 Allergies: Coded Allergies: Penicillins (HIVES 08/28/17) coconut oil (SOB 08/28/17) Disposition Summary Disposition Principal Diagnosis: pancreatic cyst Additional Diagnosis: abdominal pain Discharge Disposition: home or self care Discharge Instructions General Discharge Information Code Status: Full Code Patient's Diet: as tolerated Patient's Activity: see above Follow-Up Instructions/Appts: see above Medications at Discharge Discharge Medications: Continue taking these medications: Clonazepam (Klonopin) 1 MG TABLET 1 Tablet ORAL AT BEDTIME as needed for INSOMNIA Comments: NOT GIVEN IN HOSPITAL Lisdexamfetamine Dimesylate (Vyvanse) 60 MG CAPSULE 1 Capsule ORAL DAILY Comments: NOT GIVEN IN HOSPITAL Alprazolam (Xanax) 0.25 MG TABLET 1 Tablet ORAL DAILY NEEDED Comments: Last Taken: 08/28/17 Time: 10:20 PM Copies To: Antonietta Salinas APRN Attending MD Review Statement Documenting Attending: Jamie Gleason MD Other Findings: agree with the above discharge plan.
[2017-08-29 14:50] VITALS: BP 120/60
[2017-08-29 21:22] VITALS: BP 118/60
--- NOTE | 2017-08-30 03:49 | PN- Housestaff ---
See Addendum Subjective Follow-up For: Pancreatitis Subjective: Saw pt at bedside this AM. No acute overnight events or cmplaints. Yesterday she attempted to eat but could not tolerate any food during lunch time. We decided we would try again during breakfast. She seems to be tolerating a clear liquid diet. Once she is able to advance her diet further she can be discharged and pt seems amenable to the plan. Review of Systems Constitutional: Denies: chills, weakness. EENTM: Reports: no symptoms. Cardiovascular: Denies: chest pain, peripheral edema. Respiratory: Reports: no symptoms. Gastrointestinal: Reports: abdominal pain. Denies: diarrhea, melena, vomiting. Genitourinary: Reports: no symptoms. Musculoskeletal: Reports: no symptoms. Objective Last 24 Hrs of Vital Signs/I&O Vital Signs Date Time Temp Pulse Resp B/P B/P Pulse O2 O2 Flow FiO2 Mean Ox Delivery Rate 08/30 0235 115 130/60 08/29 2122 99.4 125 20 118/60 95 Room Air 08/29 1525 120 08/29 1450 99.5 128 20 120/60 96 Room Air 08/29 0654 99.5 124 20 132/88 96 Intake & Output 08/30 0800 08/30 0000 08/29 1600 Intake Total 250 885 Output Total Balance 250 885 Intake, IV 10 285 Intake, Oral 240 600 Number 0 Bowel Movements Physical Exam General Appearance: Alert, Oriented X3, Cooperative, No Acute Distress Skin: No Significant Lesion HEENT: Atraumatic, PERRLA, EOMI Cardiovascular: Regular Rate, Normal S1, Normal S2 Lungs: Normal Air Movement Abdomen: Soft, No Tenderness Neurological: Normal Speech Extremities: No Edema Current Medications: Current Medications Sig/Marco Start time Last Medication Dose Route Stop Time Status Admin Acetaminophen 650 MG .STK-MED ONE 08/29 1757 DC PO 08/29 1758 Acetaminophen 650 MG TID PRN 08/29 0845 AC 08/29 PO 0950 Alprazolam 0.25 MG DAILY NEEDED PRN 08/28 0815 AC 08/28 PO 09/04 0914 2219 Carvedilol 3.125 MG ONCE ONE 08/30 0215 DC 08/30 PO 08/30 0216 0235 Hydromorphone HCl 0.2 MG Q4P PRN 08/29 0945 AC 08/29 IV 1600 Lactated Ringer's 1,000 ML .Q10H 08/29 204 DC 08/29 IV 0425 Methylphenidate HCl 10 MG 0900,1200,1600 08/28 1200 AC PO Morphine Sulfate 2 MG Q4P PRN 08/28 0815 DC 08/29 IV 0424 Ondansetron HCl 4 MG Q6P PRN 08/28 0915 AC 08/29 IV 0424 Patient Medication 1 ED ONE ONE 08/29 1445 [place] Teaching ED 08/29 1446 Last 24 Hrs of Lab/Chris Results Last 24 Hrs of Labs/Mics: Laboratory Tests 08/29/17 0758: Anion Gap 12, Estimated GFR > 60, BUN/Creatinine Ratio 11.7, Total Bilirubin 1.3 , Direct Bilirubin 0.2, AST 14, ALT 22, Alkaline Phosphatase 85, C-Reactive Prot , Quant > 9.0 H, C-React Prot High Sens > 15.0 H, Total Protein 6.1 L, Albumin 3.7, CBC w Diff NO MAN DIFF REQ, RBC 4.37, MCV 82.8, MCH 27.6, MCHC 33.3 , RDW 13.3, MPV 9.1, Gran % 83.2 H, Lymphocytes % 10.2 L, Monocytes % 5.6, Eosinophils % 0.9, Basophils % 0.1, Absolute Granulocytes 12.8 H, Absolute Lymphocytes 1.6, Absolute Monocytes 0.9 H, Absolute Eosinophils 0.1, Absolute Basophils 0 Assessment/Plan Assessment: Assessment: This is a 42-year-old female with past medical history of obesity, ADHD and anxiety on Xanax as needed and Vyvanse, who was recently admitted and discharged from [facility] for pancreatitis and partially complex cyst in the head of the pancreas who comes back with chief complaint of abdominal pain and nausea. Work up here shows similar cyst compared to previous. She [facility] and is supposed to go to [place] for EUS and possible drainage. PLAN Pancreatitis with cyst: If tolerates po diet then can go home today. * Appreciate GI consult * Jonna * Toluid PRN * Blood cultures 2 negative * Patient needs EUS in near future * Start clear liquids--> ADVANCE TOLERATED Anxiety and ADHD: * Continue Xanax as needed for anxiety * Continue Vyvanse and replace it with methylphenidate 10 mg 3 times daily DVT prophylaxis for now is mechanical only, for as needed for pain, FC Diet as tolerated Problem List: 1. Pancreatic cyst 2. Pancreatitis Pain Ratin Pain Location: none Pain Goal: Remain pain free Pain Plan: none Tomorrow's Labs & Rationales: none
[2017-08-30 06:28] VITALS: BP 118/58
[2017-08-30 10:45] LABS: ABSOLUTE BASOPHIL COUNT 0 /CUMM (0.0-0.2); ABSOLUTE EOSINOPHIL COUNT 0.3 /CUMM (0.0-0.7); ABSOLUTE GRANULOCYTE CT 11.6 /CUMM (1.4-6.5); ABSOLUTE LYMPH COUNT 1.5 /CUMM (1.2-3.4); ABSOLUTE MONOCYTE COUNT 0.9 /CUMM (0.10-0.60); BASOPHIL % 0.1 % (0.0-2.0); EOSINOPHIL % 1.8 % (0-5); GRANULOCYTE % 81.5 % (42.2-75.2); HEMATOCRIT 35.6 % (37-47); MEAN CORPUSCULAR HGB 27.6 PG (27.0-31.0); MEAN CORPUSCULAR HGB CONC 33.2 G/DL (33.0-37.0); MEAN CORPUSCULAR VOLUME 83.1 FL (81.0-99.0); MEAN PLATELET VOLUME 9.4 FL (7.4-10.4); PLATELET COUNT 235 /CUMM (130-400); RED BLOOD CELL CT 4.28 /CUMM (4.20-5.40); WHITE BLOOD CELL COUNT 14.3 /CUMM (4.8-10.8)
== END 2017-08-30 14:30 | DRG 439 ==
LOC: ERH 04:32 → ERHI 05:45 → 2NB 05:45 → ENRESERV 07:41 → ENTRNSPT 07:52 → EDTRNSPTSTS 08:02 → EDTRNSPT 08:02 → 2NB 08:04 → CMPTRNSPT 08:14 → 2NB 08:18 → ENPENDDIS 08-30 12:58 → 2NB 08-30 14:30
PROVIDERS: Emergency Medicine; Internal Medicine; Student in an Organized Health Care Education/Training Program
DX: K85.90 Acute pancreatitis without necrosis or infection, unspecified (principal); K86.2 Cyst of pancreas; E66.9 Obesity, unspecified; Z68.33 Body mass index [BMI] 33.0-33.9, adult; F41.9 Anxiety disorder, unspecified; F90.9 Attention-deficit hyperactivity disorder, unspecified type; Z91.19 Patient's noncompliance with other medical treatment and regimen; Z87.891 Personal history of nicotine dependence; F12.90 Cannabis use, unspecified, uncomplicated
CPT/HCPCS: 2NBSP; 36592; 80307; 81001; 82436; 87040; 93005; 93010; 96361; 96374; 96375; J2405; J7120